=== PATIENT | female | born 1995 | race Caucasian/White ===

== ENCOUNTER 2016-10-30 12:17 | Emergency (ER) | payer BC ==
[2016-10-30 12:35] VITALS: BP 113/77
--- NOTE | 2016-10-30 12:58 | UC ---
Lower Extremity/Ankle HPI - HPI Summary HPI Summary: Noticed small red "pimple" on R inner upper thigh yesterday, tried to pop it at home. Woke up today with large round painful red area of skin. Worried about a spider bite, reports her mom gets "hives from spider bites." - History of Current Complaint Chief Complaint: Aydee Stated Complaint: BUG BITE Time Seen by Provider: 10/30/16 12:42 Hx Obtained From: Patient Hx Last Menstrual Period: 10/25/16 ?: No Onset/Duration: Gradual Onset, Lasting Days Severity Initially: Mild Severity Currently: Moderate Aggravating Factor(s): Other - touch Alleviating Factor(s): Rest Able to Bear Weight: Yes - Allergies/Home Medications Allergies/Adverse Reactions: Allergies Allergy/AdvReac Type Severity Reaction Status Date / Time No Known Allergies Allergy Verified 10/30/16 12:35 Home Medications: Home Medications Hydrocortisone (Topical) [Hydrocortisone] 1 applic TOPICAL ONCE PRN 10/30/16 [ History Confirmed 10/30/16] Metformin HCl 2 tab PO DAILY 10/30/16 [History Confirmed 10/30/16] PMH/Surg Hx/FS Hx/Imm Hx Other Endocrine History: PCOS - Surgical History Surgical History: Yes Surgery Procedure, Year, and Place: [place] Teeth extractioon - Family History Known Family History: Positive: None - Social History Occupation: Employed Part-time Lives: With Family Alcohol Use: None Substance Use Type: None Smoking Status (MU): Never Smoked Tobacco Household Exposure Type: Cigarettes - Immunization History Vaccination Up to Date: Yes Review of Systems Constitutional: Negative Skin: Rash - R thigh Eyes: Negative ENT: Negative Respiratory: Negative Cardiovascular: Negative Gastrointestinal: Negative Genitourinary: Negative Motor: Negative Neurovascular: Negative Musculoskeletal: Negative Neurological: Negative Psychological: Negative All Other Systems Reviewed And Are Negative: Yes Physical Exam Triage Information Reviewed: Yes Appearance: Well-Appearing, Obese Vital Signs: Initial Vital Signs Temp 98.4 F 10/30/16 12:31 Pulse 91 10/30/16 12:31 Resp 18 10/30/16 12:31 BP 113/77 10/30/16 12:31 Pulse Ox 98 10/30/16 12:31 Vital Signs Reviewed: Yes Eye Exam: Normal Eyes: Positive: Conjunctiva Clear ENT Exam: Normal ENT: Positive: Normal ENT inspection, Hearing grossly normal, Pharynx normal, TMs normal Dental Exam: Normal Neck exam: Normal Neck: Positive: Supple, Nontender, No Lymphadenopathy Respiratory Exam: Normal Respiratory: Positive: Chest non-tender, Lungs clear, Normal breath sounds, No respiratory distress, No accessory muscle use Cardiovascular Exam: Normal Cardiovascular: Positive: RRR, No Murmur Musculoskeletal Exam: Normal Neurological Exam: Normal Neurological: Positive: Alert Psychological Exam: Normal Skin Exam: Other - 14cm x 10cm red, hot, tender skin with pustule in the center in R upper inner thigh Lower Extremity Course/Dx - Differential Dx/Diagnosis Provider Diagnoses: R thigh cellulitis Discharge - Discharge Plan Condition: Stable Disposition: HOME Prescriptions: Sulfamethox/Trimethoprim DS* [Bactrim DS 800/160 TAB*] 1 tab PO BID #11 tab Patient Education Materials: Cellulitis (ED) Referrals: Sarahi Abdullahi NP [Primary Care Provider] - Additional Instructions: Warmth and rest can help the area. You should see clear improvement within 36 hours of starting the antibiotic. If not, please call and get me a message that you are not improving and I can add to or change your antibiotics. I will be working every day through Thursday (though some days I will be in [place], you should be able to get me a message no problem).
== END 2016-10-30 13:05 | disposition home or self-care (01) ==
LOC: UCEAST 12:17
DX: L03.115 Cellulitis of right lower limb (principal); E66.9 Obesity, unspecified; Z77.22 Contact with and (suspected) exposure to environmental tobacco smoke (acute) (chronic)
CPT/HCPCS: 99212; G0463

== ENCOUNTER 2017-04-27 13:35 | Emergency (ER) | payer BC, MEDICAID, OTHER ==
[2017-04-27 15:15] VITALS: BP 131/71
--- NOTE | 2017-04-27 15:55 | RAD ---
CLINICAL HISTORY: Right flank pain and urinary tract infection symptoms COMPARISON: None TECHNIQUE: Noncontrast CT examination of the abdomen and pelvis from the lung bases through the initial tuberosities. FINDINGS: VISUALIZED LUNG BASES: The visualized lung bases are grossly clear. There is no pleural effusion. ABDOMEN AND PELVIS: Evaluation of the solid organs and vasculature is limited without intravenous contrast. The liver, spleen, pancreas and adrenal glands are grossly normal in appearance. The gallbladder is normal. In the right kidney there is a nonobstructing lower pole calcification measuring 6 mm in greatest dimension (coronal image 85). At the lower pole of the left kidney there is a punctate calcification. There is no significant hydronephrosis bilaterally. No calculi are identified in either ureter or the urinary bladder. Evaluation of the urinary bladder is limited as it is mostly decompressed which gives the appearance of circumferential wall thickening. Evaluation of the gastrointestinal tract is limited without oral contrast. The small and large bowel are not distended. A normal appendix is identified in the right lower quadrant measuring 6 mm in diameter (axial image 159 and coronal image 77). Gas and stool seen throughout the length of the normal-appearing colon. There is no gross retroperitoneal or mesenteric lymphadenopathy. The pelvic viscera is normal in appearance. The abdominal aorta and iliac arteries are normal in course and diameter. There are bilateral L5 pars interarticularis defects without subsequent spondylolisthesis. IMPRESSION: 1. Bilateral nonobstructing renal calculi. 2. 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
--- NOTE | 2017-04-27 19:25 | UC ---
Caryn Bae Nilda, scribed for Dimitrios Babin MD on 04/27/17 at 1527 . Complaint Female HPI - HPI Summary HPI Summary: This patient is a 21 year old F [place] [facility] [place] a chief complaint of constant dysuria for the past 2 days. Two weeks ago pt states she had pain where her kidneys were and visited her clinic at home. UA revealed trace RBC and WBC. Pt was on Bactrim for three days with slight relief but symptoms continue. The patient rates the pain 8/10 in severity. Symptoms aggravated by urination. Patient reports abd pain (cramping), hematuria, and right lower back pain. Patient denies vaginal discharge, abnormal bowels, fever, chills, ear pain , and throat pain. LNMP 03/31/17. - History Of Current Complaint Chief Complaint: UCGU Stated Complaint: URINARY ISSUE Time Seen by Provider: 04/27/17 15:18 Hx Obtained From: Patient Hx Last Menstrual Period: 03/31/17 Onset/Duration: Sudden Onset, Lasting Days - 2 days, Still Present Timing: Constant Severity Currently: Severe Pain Intensity: 8 Pain Scale Used: 0-10 Numeric Character: Cramping Aggravating Factor(s): Urination Alleviating Factor(s): Meds - bactrim Associated Signs And Symptoms: Positive: Back Pain. Negative: Vaginal Bleeding/ Discharge, Vaginal Discharge - Allergies/Home Medications Allergies/Adverse Reactions: Allergies Allergy/AdvReac Type Severity Reaction Status Date / Time No Known Allergies Allergy Verified 04/27/17 15:12 PMH/Surg Hx/FS Hx/Imm Hx Previously Healthy: Yes - Surgical History Surgical History: Yes Surgery Procedure, Year, and Place: [place] Teeth extractioon - Family History Known Family History: Negative: Renal Disease - Social History Occupation: Employed Full-time Alcohol Use: None Substance Use Type: None Smoking Status (MU): Never Smoked Tobacco Household Exposure Type: Cigarettes - Immunization History Vaccination Up to Date: Yes Review of Systems Constitutional: Other - negative fever or chills ENT: Other - negative ear pain, throat pain Gastrointestinal: Abdominal Pain, Other - negative abnormal bowels Genitourinary: Dysuria, Hematuria, Other - negative vaginal discharge Musculoskeletal: Other: - right lower back pain All Other Systems Reviewed And Are Negative: Yes Physical Exam Triage Information Reviewed: Yes Vital Signs: Initial Vital Signs Temp 97.8 F 04/27/17 15:13 Pulse 82 04/27/17 15:13 Resp 19 04/27/17 15:13 BP 131/71 04/27/17 15:13 Pulse Ox 100 04/27/17 15:13 Vital Signs Reviewed: Yes - Additional Comments General: well-appearing, no pain distress Skin: warm, color reflects adequate perfusion, dry Head: normal Eyes: EOMI, PATTY ENT: normal Neck: supple, nontender Respiratory: CTA, breath sounds present Cardiovascular: RRR Abdomen: soft, tender suprapubic area Bowel: present Musculoskeletal: normal, strength/ROM intact Neurological: normal, sensory/motor intact, A&O x3 Psychological: affect/mood appropriate Diagnostics - Radiology CT Abd/Pel Radiology Interpretation Completed By: Radiologist - CT Abd/Pel, per radiologist , reveals: 1. Bilateral nonobstructing renal calculi. 2. 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 Dr. Babin has reviewed this radiology report. Re-Evaluation - Re-Evaluation First Eval Re-Evaluation Time: 16:18 Comment: Reviewed labs and imaging with pt. Reviewed plan to send serum test to lab. 3 pregnany tests done here: 1 positive, 1 borderline on machine. 1 manual test was negatve. Complaint Female Dx - Course Course Of Treatment: CT Abd/Pel, per radiologist, reveals: 1. Bilateral nonobstructing renal calculi. 2. 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 Dr. Babin has reviewed this radiology report. BP noted and advised to follow up with PCP. Allergies and medications reviewed. IN THE CLINIC, THERE WERE 4 TESTS OBTAINED. THE FIRST TWO WERE RUN ON THE MACHINE INITIAL ONE WAS POSITIVE, THE SECOND BORDERLINE. THE THIRD WAS DONE MANUALLY AND WAS NEGATIVE. THE FORTH IS A BLOOD DRAW BEING SENT TO THE LAB. THIS WAS ALL DISCUSSED WITH THE PATIENT. THE SERUM TEST WAS NEGATIVE. I CALLED [facility] AND LEFT A MESSAGE ON HER VOICE MAIL TELLING HER OF THE NEGATIVE RESULTS. - Differential Dx/Diagnosis Provider Diagnoses: UTI. Elevated blood pressure without history of hypertension. Discharge - Discharge Plan Condition: Stable Disposition: HOME Prescriptions: Nitrofurantoin Monohyd Macro [Macrobid] 100 mg PO BID #28 cap Patient Education Materials: Urinary Tract Infection in Women (ED) Referrals: [facility] [place] [facility] [[place]] No Primary Care Phys,NOPCP [Primary Care Provider] - Additional Instructions: FOLLOW UP WITH YOUR DOCTOR. WE WILL CALL YOU WITH YOUR SERUM TEST RESULTS TONIGHT. GET RECHECKED FOR ANY WORSENING OF YOUR CONDITION OR QUESTIONS OR CONCERNS. Your blood pressure was elevated during todays visit; please follow up with your primary care provider within a week for further evaluation. The documentation as recorded by the Caryn ewing Nilda accurately reflects the service I personally performed and the decisions made by me, Dimitrios Babin MD.
--- NOTE | 2017-04-28 18:50 | UC ---
Progress - Progress Note Progress Note: Pt with + E coli on Macrobid await sensitivities No change [facility] 04/28/2017 Re-Evaluation - Re-Evaluation First Eval Re-Evaluation Time: 16:18 Comment: Reviewed labs and imaging with pt. Reviewed plan to send serum test to lab. 3 pregnany tests done here: 1 positive, 1 borderline on machine. 1 manual test was negatve.
--- NOTE | 2017-04-29 11:33 | UC ---
Progress - Progress Note Progress Note: Pt with + E coli on Macrobid await sensitivities No change [facility] 04/28/2017 04/29/17 11:30 + sensitive to macrobid no changes [facility] Re-Evaluation - Re-Evaluation First Eval Re-Evaluation Time: 16:18 Comment: Reviewed labs and imaging with pt. Reviewed plan to send serum test to lab. 3 pregnany tests done here: 1 positive, 1 borderline on machine. 1 manual test was negatve.
== END 2017-04-27 16:43 | disposition home or self-care (01) ==
LOC: UCEAST 13:35
DX: N39.0 Urinary tract infection, site not specified (principal); R03.0 Elevated blood-pressure reading, without diagnosis of hypertension; Z32.02 Encounter for pregnancy test, result negative; B96.20 Unspecified Escherichia coli [E. coli] as the cause of diseases classified elsewhere; Z77.22 Contact with and (suspected) exposure to environmental tobacco smoke (acute) (chronic)
CPT/HCPCS: 36415; 74176; 81003; 81025; 84702; 87077; 87086; 87186; 99212; G0463

== ENCOUNTER 2018-11-21 17:47 | Emergency (ER) | payer OTHER ==
[2018-11-21 18:41] VITALS: BP 121/80
--- NOTE | 2018-11-21 19:10 | UC ---
Complaint Female HPI - HPI Summary HPI Summary: 2 DAYS OF FOUL-SMELLING VAGINAL DISCHARGE. DENIES ANY ITCHING OR IRRITATION. NO URINARY SYMPTOMS. HAD UNPROTECTED SEX ABOUT 2 MONTHS AGO. HAD A ONE NIGHT STAND A COUPLE OF WEEKS AGO BUT REPORTS SHE USED BARRIER PROTECTION DURING THAT ENCOUNTER. IS CONCERNED ABOUT VAGINITIS AND WOULD ALSO LIKE STD TESTING. IS UP -TO-DATE ON HER VACCINATIONS INCLUDING HEPATITIS B SERIES. - History Of Current Complaint Chief Complaint: UCGU Stated Complaint: PERSONAL ISSUE Time Seen by Provider: 11/21/18 18:37 Hx Obtained From: Patient, Family/Field Service Poultry Technician - MOM Hx Last Menstrual Period: 10/27/2018 Onset/Duration: Gradual Onset, Lasting Days, Still Present Timing: Constant Severity Initially: Moderate Severity Currently: Moderate Pain Intensity: 0 Pain Scale Used: 0-10 Numeric Character: Burning Aggravating Factor(s): Nothing Alleviating Factor(s): Nothing Associated Signs And Symptoms: Positive: Vaginal Discharge. Negative: Fever, Back Pain - Allergies/Home Medications Allergies/Adverse Reactions: Allergies Allergy/AdvReac Type Severity Reaction Status Date / Time No Known Allergies Allergy Verified 11/21/18 18:36 Home Medications: Home Medications NK [No Home Medications Reported] 11/21/18 [History Confirmed 11/21/18] PMH/Surg Hx/FS Hx/Imm Hx Previously Healthy: Yes - Surgical History Surgical History: Yes Surgery Procedure, Year, and Place: [place] Teeth extractioon - Family History Known Family History: Positive: None Negative: Renal Disease - Social History Alcohol Use: None Substance Use Type: None Smoking Status (MU): Never Smoked Tobacco Household Exposure Type: Cigarettes - Immunization History Vaccination Up to Date: Yes Review of Systems All Other Systems Reviewed And Are Negative: Yes Constitutional: Positive: Negative Skin: Positive: Negative Respiratory: Positive: Negative Cardiovascular: Positive: Negative Gastrointestinal: Positive: Negative Genitourinary: Positive: Vaginal/Penile Discharge. Negative: Dysuria, Frequency , Urgency Physical Exam Triage Information Reviewed: Yes Appearance: Well-Appearing, No Pain Distress, Well-Nourished Vital Signs: Initial Vital Signs Temp 97.7 F 11/21/18 18:38 Pulse 82 11/21/18 18:38 Resp 18 11/21/18 18:38 BP 121/80 11/21/18 18:38 Pulse Ox 95 11/21/18 18:38 Laboratory Tests 11/21/18 18:41 POC Ur Test Negative Vital Signs Reviewed: Yes Eyes: Positive: Conjunctiva Clear ENT: Positive: Hearing grossly normal Neck: Positive: Supple Respiratory: Positive: No respiratory distress, No accessory muscle use Cardiovascular: Positive: Pulses Normal Abdomen Description: Positive: Nontender, Soft Pelvic Exam: Positive: External Exam Normal, Bimanual Exam Normal, No Cerv. Motion Tender, Discharge - THIN MALODOROUS AGUILAR/WHITE DISCHARGE IN VAGINAL VAULT. Negative: Cervicitis Musculoskeletal: Positive: No Edema Neurological: Positive: Alert Psychological: Positive: Age Appropriate Behavior Skin: Negative: Rashes Complaint Female Dx - Course Course Of Treatment: FINDINGS ON PELVIC EXAM INDICATIVE OF BACTERIAL VAGINOSIS. WILL COVER EMPIRICALLY WITH METRONIDAZOLE TWICE DAILY FOR 7 DAYS. ADVISED NO ALCOHOL WHILE ON THIS MEDICATION. VAGINAL SWABS SENT FOR YEAST, BV, TRICHOMONAS, GONORRHEA AND CHLAMYDIA. BLOOD DRAWN FOR HIV, SYPHILIS AND HEPATITIS C. COUNSELED ON SAFER SEX PRACTICES. REFERRED TO PRIMARY CARE AND BUTTER WRAPPER. - Differential Dx/Diagnosis Provider Diagnosis: Vaginitis, Screen for STD (sexually transmitted disease) Discharge - Sign-Out/Discharge Documenting (check all that apply): Patient Departure All imaging exams completed and their final reports reviewed: No Studies - Discharge Plan Condition: Stable Disposition: HOME Prescriptions: metroNIDAZOLE [Flagyl 500 MG TAB] 500 mg PO BID #13 tab Patient Education Materials: Vaginitis (ED) Referrals: [facility] [Outside] - If Needed Rody Peoples MD [Medical Doctor] - Additional Instructions: YOU LIKELY HAVE BACTERIAL VAGINOSIS. WILL COVER FOR THIS WITH METRONIDAZOLE TWICE DAILY FOR 7 DAYS. BE AWARE THAT THIS MEDICINE MAY MAKE YOU SLIGHTLY NAUSEATED. NO ALCOHOL WHATSOEVER WHILE ON THIS MEDICATION. VAGINAL SWAB SENT TO TEST FOR VARIOUS FORMS OF VAGINITIS WELL GONORRHEA AND CHLAMYDIA. BLOOD TEST FOR HIV, SYPHILIS AND HEPATITIS C DRAWN TODAY. WE WILL CALL YOU WITH ANY ABNORMAL RESULTS. I RECOMMEND YOU ESTABLISH WITH A PCP OR FISH HATCHERY INSPECTOR FOR YOUR ROUTINE PREVENTATIVE CARE. - Billing Disposition and Condition Condition: STABLE Disposition: Home
[2018-11-21] MEDS ORDERED: metroNIDAZOLE TAB* 250 MG PO ONE (19:28)
[2018-11-22 13:52] LABS: HIV 4th Generation Negative (Negative)
[2018-11-22 14:01] LABS: Hepatitis C Antibody Negative (Negative)
[2018-11-23 19:55] LABS: Neisseria gonorrhoeae (GC) RNA Negative (Negative)
[2018-11-23 20:10] LABS: Trichomonas vaginalis Result Negative (Negative)
--- NOTE | 2018-11-24 16:43 | UC ---
- Progress Note Progress Note: syphillis neg no change ljj 11/24/18 Course/Dx - Diagnoses Provider Diagnoses: Vaginitis, Screen for STD (sexually transmitted disease) Discharge - Sign-Out/Discharge Documenting (check all that apply): Patient Departure All imaging exams completed and their final reports reviewed: No Studies - Discharge Plan Condition: Stable Disposition: HOME Prescriptions: metroNIDAZOLE [Flagyl 500 MG TAB] 500 mg PO BID #13 tab Patient Education Materials: Vaginitis (ED) Referrals: [facility] [Outside] - If Needed Rody Peoples MD [Medical Doctor] - Additional Instructions: YOU LIKELY HAVE BACTERIAL VAGINOSIS. WILL COVER FOR THIS WITH METRONIDAZOLE TWICE DAILY FOR 7 DAYS. BE AWARE THAT THIS MEDICINE MAY MAKE YOU SLIGHTLY NAUSEATED. NO ALCOHOL WHATSOEVER WHILE ON THIS MEDICATION. VAGINAL SWAB SENT TO TEST FOR VARIOUS FORMS OF VAGINITIS WELL GONORRHEA AND CHLAMYDIA. BLOOD TEST FOR HIV, SYPHILIS AND HEPATITIS C DRAWN TODAY. WE WILL CALL YOU WITH ANY ABNORMAL RESULTS. I RECOMMEND YOU ESTABLISH WITH A PCP OR PUBLIC WELFARE WORKER FOR YOUR ROUTINE PREVENTATIVE CARE. - Billing Disposition and Condition Condition: STABLE Disposition: Home
== END 2018-11-21 19:35 | disposition home or self-care (01) ==
LOC: UCEAST 17:47
DX: N76.0 Acute vaginitis (principal); Z20.2 Contact with and (suspected) exposure to infections with a predominantly sexual mode of transmission
CPT/HCPCS: 36415; 84702; 86780; 86803; 87389; 87480; 87491; 87510; 87591; 87661; 99212; A9270-GY; G0463

== ENCOUNTER 2019-05-01 16:34 | Emergency (ER) | payer OTHER ==
--- OUTSIDE RECORDS SUMMARY | 2019-05-01 16:51 | XMS REPORT | Continuity of Care Document ---
:1995 External Reference #:[id number] Author Name Dakotah Lynn MD Address [address] [place] [address] Problems Description No Information Available Social History Type Date Description Comments Sex Unknown Cigarette Use Does Not Smoke Cigarettes ETOH Use Currently consumes alcohol occasionally Recreational Drug Use Denies Drug Use Tobacco Use Start: Unknown Patient has never smoked Smoking Status Reviewed: 04/28/19 Patient has never smoked Exercise Type/Frequency Does not exercise Allergies, Adverse Reactions, Alerts Active Allergies Reaction Severity Comments Date Latex sensitive 01/25/2019 Metronidazole Diarrhea, vomiting 02/01/2019 Inactive Allergies NKDA 01/25/2019 Medications Active Medications SIG Qnty Indications Ordering Date Provider Fluconazole 1 tablet then 2tabs Pepper Lee, 03/24/2019 150mg second tablet 72 CNM Tablets hours later as needed for continuing symptoms Sprintec 28 1 by mouth every 84tabs Larissa Louise, 02/03/2019 day CNM 0.25-35mg-mcg Tablets Metoprolol Succinate 1 by mouth every Unknown ER day 25mg Tablets ER 24HR Propranolol HCL 1 by mouth three Unknown 10mg times a day Tablets History Medications Clindamycin Phosphate one applicator per 80gm Larissa Louise, 02/01/2019 - 2% vagina every night CNM 03/24/2019 Cream at bedtime x 7 days Metronidazole 1 tab by mouth 14tabs Larissa Gil, 01/27/2019 - 500mg Tablets twice a day CNM 02/01/2019 Cyclafem 1/35 1 tab by mouth 84tabs Larissa Gil, 01/25/2019 - 1-35mg-mcg every day CNM 02/03/2019 Tablets Medications Administered in Office Medication SIG Qnty Indications Ordering Provider Date PT SCRN Tbco Id as Non User Dakotah Lynn MD 04/28/2019 Injection PT SCRN Tbco Id as Non User Pepper Lee CNM 03/24/2019 Injection Immunizations Description No Information Available Vital Signs Date Vital Result Comment 04/28/2019 1:23pm BP Systolic 122 mmHg BP Diastolic 78 mmHg Height 66 inches 5'6" Weight 232.00 lb BMI (Body Mass Index) 37.4 kg/m2 Last Menstrual Period 1905661 0 Parity 0 03/24/2019 3:39pm BP Systolic 118 mmHg BP Diastolic 76 mmHg Height 66 inches 5'6" Weight 232.00 lb BMI (Body Mass Index) 37.4 kg/m2 Last Menstrual Period [id number] 0 Parity 0 Results Test Acquired Date Facility Test Result H/L Range Note Laboratory test 03/24/2019 [facility] Gardnerella/Ye SEE RESULT [address] [place] [address] ast: Vaginal BELOW [phone] Dna Laboratory test 01/25/2019 [facility] Gard[place]/Ye SEE RESULT [address] [place] [address] ast: Vaginal BELOW [phone] Dna Laboratory test 01/25/2019 [facility] Cytology SEE RESULT 3 [place] [address] BELOW [phone] 1 SEE RESULT BELOW Name: NORTH MASSEY : [address]: Pepper Lee CNM Acct: [id number] Unit: [id number] AGE: 23 Location: [facility] Re03/24/19 SEX: F Status: REG REF SPEC: [id number] BERTO: 03/24/19-[address] [facility] [address]: Pepper Lee [facility] REQ: [id number] RECD: 03/25/19 STATUS:COMP _ SOURCE: VAGINAL [facility]: ORDERED: Brennan,Yeast DNA COMMENTS: [id number] Would you like to order Trichomonas Vaginalis testing? No Procedure Result Reported Site Gardnerella/Yeast: Vaginal DNA Final 03/26/19- 1623 ML Organism 1 POSITIVE GARDNERELLA Organism 2 Negative Mariana The presence of G. vaginalis, although suggestive, is not diagnostic for bacterial vaginosis. Results should be interpreted in conjuction with other clinical and laboratory data available. Women with vaginal discharge should be evaluated for risk factors of cervicitis and pelvic inflammatory disease, toxic shock syndrome (S.aureus), and if present, evaluated for organisms not included in this assay such as N. gonorrhoeae, C. trachomatis, Mobiluncus, Mycoplasma and/or Prevotella. Mixed infections may occur. The performance of this test on patient specimens collected during or immediately after antimicrobial therapy is unknown. The presence or absence of Mariana species, or G. vaginalis cannot be used as a test for therapeutic success or failure. * - Main Lab . END OF REPORT DEPARTMENT OF PATHOLOGY, [address] [place] [address] Ilia Mijares M.D. Director [facility] # [id number] 2 SEE RESULT BELOW Name: NORTH MASSEY : [address]: Larissa Gil CNM Acct: [id number] Unit: [id number] AGE: 23 Location: [facility] Re01/25/19 SEX: F Status: REG REF SPEC: [id number] BERTO: 01/25/19-[address] [facility] [address]: Larissa Gil CNM REQ: [id number] RECD: 01/26/191249 STATUS: COMP _ SOURCE: VAGINAL SPDESC: ORDERED: Brennan,Yeast DNA, Trich DNA COMMENTS: [id number] Would you like to order Trichomonas Vaginalis testing? Yes Procedure Result Reported Site Gardnerella/Yeast: Vaginal DNA Final 01/27/191112 ML Organism 1 POSITIVE GARDNERELLA Organism 2 Negative Mariana The presence of G. vaginalis, although suggestive, is not diagnostic for bacterial vaginosis. Results should be interpreted in conjuction with other clinical and laboratory data available. Women with vaginal discharge should be evaluated for risk factors of cervicitis and pelvic inflammatory disease, toxic shock syndrome (S.aureus), and if present, evaluated for organisms not included in this assay such as N. gonorrhoeae, C. trachomatis, Mobiluncus, Mycoplasma and/or Prevotella. Mixed infections may occur. The performance of this test on patient specimens collected during or immediately after antimicrobial therapy is unknown. The presence or absence of Mariana species, or G. vaginalis cannot be used as a test for therapeutic success or failure. Trichomonas: Vaginal DNA Probe Final 01/27/191112 ML Organism 1 Negative Trichomonas CONTINUED ON NEXT PAGE DEPARTMENT OF PATHOLOGY, [address] [place] [address] Ilia Mijares M.D. Director [facility] # [id number] Patient: NORTH MASSEY [id number] (Continued) Specimen: [id number] Collected: 01/25/19 Received: 01/26/19 (Continued) Procedure Result Reported Site Trichomonas: Vaginal DNA Probe Final (continued) 01/27/19- 111 The presence or absence of T. vaginalis cannot be used as a test for therapeutic success or failure. * ML - Main Lab . END OF REPORT DEPARTMENT OF PATHOLOGY, [address] [place] [address] Ilia Mijares M.D. Director [facility] # [id number] 3 SEE RESULT BELOW Name: NORTH MASSEY : [address]: Larissa Gil CNM Acct: [id number] Unit: [id number] AGE: 23 Location: [facility] Re01/25/19 SEX: F Status: REG REF SPEC: [id number] BERTO: 01/25/19-[address]: Larissa Gil CNM REQ: [id number] RECD: 01/26/19-1301 STATUS: SOUT _ ORDERED: TP IMAGE ANALYS COMMENTS: [id number] FINAL DIAGNOSIS Negative for Intraepithelial lesion or Malignancy Shift in markel suggestive of bacterial vaginosis SPECIMEN(S) RECEIVED A. Ectocervical/Endocervical CYTOLOGY ADEQUACY Specimen Adequacy: Satisfactory of evaluation Transformation zone component not identified CYTOLOGY PATIENT INFORMATION Patient Information: HPV: Thin Layer Pap Test w/reflex to high risk HPV RNA testing when ASCUS Actual Specimen Date: 01/25/19 Last Menstrual Date: 01/08/19 Spec Date if unknown: unknowN ?: N Post Menopausal?: N Hysterectomy?: N Previous Abnormal Pap Smears?:N Signed by and Reported on: CATY Morton(ASCP) 2058 This Pap test was evaluated with the assistance of the [employer] Test Imaging System. Due to cytologic findings at the filter tip catcher microscope, comprehensive manual rescreening by a Epitaxial Reactor Operator may be required. The Pap Smear is a screening test designed to aid in the detection of premalignant and malignant conditions of the uterine cervix. It is not a diagnostic procedure and should not be used as the sole means of detecting cervical cancer. Both false- positive and false- negative reports do occur. Depending on your risk status, a Pap smear should be obtained and evaluated every 1-3 years. END OF REPORT DEPARTMENT OF PATHOLOGY, [address] [place] [address] Ilia Mijares M.D. Director [facility] # [id number] Procedures Description No Information Available Medical Devices Description No Information Available Encounters Type Date Location Provider Dx Diagnosis Office Visit 04/28/2019 [facility] Dakotah Lynn MD R10.31 Right lower quadrant 1:30p pain Z87.442 Personal history of urinary calculi Office Visit 03/24/2019 3:45p [facility] Pepper Lee N76.0 Acute vaginitis [facility] Office Visit 01/25/2019 3:00p [facility] Larissa Gil CNM Z01.419 Encntr for retention representative exam (general) (routine) w/o abn findings Assessments Date Code Description Provider 04/28/2019 R10.31 Right lower quadrant pain Dakotah Lynn MD 04/28/2019 Z87.442 Personal history of urinary calculi Dakotah Lynn MD 03/24/2019 N76.0 Acute vaginitis Pepper Lee CNM 01/25/2019 Z01.419 Encounter for gynecological examination Larissa Gil CNM (general) (routine) without abnormal findings Plan of Treatment No Information Available Functional Status Description No Information Available Mental Status Description No Information Available Referrals Description No Information Available
--- OUTSIDE RECORDS SUMMARY | 2019-05-01 16:51 | XMS REPORT | Continuity of Care Document ---
:1995 External Reference #:[id number] Author Name Heaven Mcleod PA-C (transmitted by agent of provider Alec Rivera) Address [address] [address] Care Team Providers Name Role Phone Annie Burrell MD Care Team Information Guidance Director Unavailable Problems Description No Information Available Social History Type Date Description Comments Sex Unknown Tobacco Use Start: Unknown Never Smoked Cigarettes Tobacco Use Start: Unknown Never Smoked Cigars Tobacco Use Start: Unknown Never Smoked A Pipe Smokeless Tobacco Never Used Smokeless Tobacco ETOH Use Currently rarely consumes alcohol Tobacco Use Start: Unknown Patient has never smoked Smoking Status Reviewed: 04/22/19 Patient has never smoked Allergies, Adverse Reactions, Alerts Description No Known Drug Allergies Medications Active Medications SIG Qnty Indications Ordering Provider Date Alcona-Linyah Take One Tablet Unknown 0.25-35mg-mcg By Mouth Every Tablets Day Metoprolol Succinate Take One Tablet Unknown ER By Mouth Every 25mg Tablets ER 24HR Day Propranolol HCL Take One Tablet Unknown 10mg By Mouth AT Night Tablets as Needed Immunizations Description No Information Available Vital Signs Date Vital Result Comment 04/25/2019 9:07am BP Systolic 120 mmHg BP Diastolic 71 mmHg Heart Rate 78 /min Respiratory Rate 16 /min Weight 230.00 lb Weight 104.328 kg Height 67.5 inches 5'7.50" Height in cm's 171.4 cm BMI (Body Mass Index) 35.5 kg/m2 02/15/2019 2:40pm Weight 232.00 lb Weight 105.235 kg Height 67.5 inches 5'7.50" Height in cm's 171.4 cm BMI (Body Mass Index) 35.8 kg/m2 Results Description No Information Available Procedures Description No Information Available Medical Devices Description No Information Available Encounters Type Date Location Provider Dx Diagnosis Office Visit 02/15/2019 [place] Alec Sky J35.01 Chronic tonsillitis 2:45p 05/11/07 MD Nicole J35.1 Hypertrophy of tonsils Assessments Date Code Description Provider 04/25/2019 J35.01 Chronic tonsillitis Heaven Mcleod PA-C 04/25/2019 J35.1 Hypertrophy of tonsils Heaven Mcleod PA-C 02/15/2019 J35.01 Chronic tonsillitis Alec Rivera MD 02/15/2019 J35.1 Hypertrophy of tonsils Alec Rivera MD Plan of Treatment Future Appointment(s):06/20/2019 9:15 am - Heaven Mcleod PA-C at [place] 9:15 am - Alec Rivera MD at [facility] [place] R106/26/2018 - ZULMA RoCJ35.01 Chronic qonpkfmsmdoQ97.1 Hypertrophy of tonsilsComments:2018 - POSTOP CARE Loki&Katie has been scheduled for tonsillectomy with Dr. Rivera who has already We reviewed the risks benefits and alternatives of tonsillectomy. The postoperative course was reviewed in great detail. We discussed higher levels of pain are more likely in the first couple of days and then again after a week when the scabs begin to come off. They can use Tylenol and anti-inflammatories interchanging every 2 hours to cover the pain as needed. They understand to push fluids to help his course go better. They will have popsicles on hand both for fluid intake and in case of a postoperative bleed. They are encouraged to call the office with any questions or concerns in the pre or post operative period. Functional Status Description No Information Available Mental Status Description No Information Available Referrals Description No Information Available
--- OUTSIDE RECORDS SUMMARY | 2019-05-01 16:51 | XMS REPORT | Continuity of Care Document ---
:1995 External Reference #:[id number] Author Name Pepper Lee CNM Address [address] [place] [address] Problems Description No Information Available Social History Type Date Description Comments Sex Unknown Cigarette Use Does Not Smoke Cigarettes ETOH Use Currently consumes alcohol occasionally Recreational Drug Use Denies Drug Use Tobacco Use Start: Unknown Patient has never smoked Smoking Status Reviewed: 01/25/19 Patient has never smoked Exercise Type/Frequency Does [...] 28 1 by mouth every 84tabs Larissa Gil, 02/03/2019 day CNM 0.25-35mg-mcg Tablets History Medications Clindamycin Phosphate one applicator per 80gm Larissa Gil, 02/01/2019 - 2% vagina every night CNM 03/24/2019 Cream at bedtime x 7 days Metronidazole 1 tab by mouth 14tabs Larissa Louise, 01/27/2019 - 500mg Tablets twice a day CNM 02/01/2019 Cyclafem 1/35 1 tab by mouth 84tabs Larissa Storstephan, 01/25/2019 - 1-35mg-mcg every day CNM 02/03/2019 Tablets Immunizations Description No Information Available Vital Signs Date Vital Result Comment 03/24/2019 3:39pm BP Systolic 118 mmHg BP Diastolic 76 mmHg Height 66 inches 5'6" Weight 232.00 lb BMI (Body Mass Index) 37.4 kg/m2 Last Menstrual Period [id number] 0 Parity 0 01/25/2019 2:26pm BP Systolic 116 mmHg BP Diastolic 68 mmHg Height 66 inches 5'6" Weight 232.00 lb BMI (Body Mass Index) 37.4 kg/m2 Last Menstrual Period [id number] Results Test Acquired Date Facility Test Result H/L Range Note Laboratory test 03/24/2019 [facility] Gardnerella/Ye <pending> [place] [address] ast: Vaginal [phone] Dna Laboratory test 01/25/2019 [facility] Gardnerella/Ye SEE RESULT [address] [place] [address] ast: Vaginal BELOW [phone] Dna Laboratory test 01/25/2019 [facility] Cytology SEE RESULT 2 [place] [address] BELOW [phone] 1 SEE RESULT BELOW Name: NORTH MASSEY : [address]: Larissa Gil CNM Acct: [id number] Unit: [id number] AGE: 23 Location: [facility] Re01/25/19 SEX: F Status: REG REF SPEC: [id number] BERTO: 01/25/19-[address]: Larissa Gil CNM REQ: [id number] RECD: 01/26/19-1249 STATUS: COMP _ SOURCE: VAGINAL SPDESC: ORDERED: Brennan,Yeast DNA, Trich DNA COMMENTS: [id number] Would you like to order Trichomonas Vaginalis testing? Yes Procedure Result Reported Site Gardnerella/Yeast: Vaginal DNA Final 01/27/19- 1112 ML Organism 1 POSITIVE GARDNERELLA Organism 2 [...] or failure. Trichomonas: Vaginal DNA Probe Final 01/27/193 ML Organism 1 Negative Trichomonas CONTINUED ON NEXT PAGE DEPARTMENT OF PATHOLOGY, [address] [place] [address] Ilia Mijares M.D. Director [facility] # [id number] Patient: NORTH MASSEY [id number] (Continued) Specimen: [id number] Collected: 01/25/19 Received: 01/26/19 (Continued) Procedure Result Reported Site Trichomonas: Vaginal DNA Probe Final (continued) 01/27/19 111 The presence or absence of T. vaginalis cannot be used as a test for therapeutic success or failure. * ML - Main Lab . END OF REPORT DEPARTMENT OF PATHOLOGY, [address] [place] [address] Ilia Mijares M.D. Director [facility] # [id number] 2 SEE RESULT BELOW Name: NORTH MASSEY : [address]: Larissa Gil CNM Acct: [id number] Unit: [id number] AGE: 23 Location: [facility] Re01/25/19 SEX: F Status: REG REF SPEC: [id number] BERTO: 01/25/19-[address] [facility] [address]: Larissa Gil CNM REQ: [id number] RECD: 01/26/19-1301 STATUS: SOUT _ ORDERED: TP IMAGE ANALYS COMMENTS: [id number] FINAL DIAGNOSIS Negative for Intraepithelial lesion or [...] Signed by and Reported on: CATY Morton(ASCP) 6740 This Pap test was evaluated with the assistance of the [employer] Test Imaging System. Due to cytologic findings at the content management specialist microscope, comprehensive manual rescreening by a Service Coordinator Elderly Facility may be required. The Pap Smear is [...] years. END OF REPORT DEPARTMENT OF PATHOLOGY, [address] [place] [address] Ilia Mijares M.D. Director [facility] # [id number] Procedures Description No Information Available Medical Devices Description No Information Available Encounters Type Date Location Provider Dx Diagnosis Office Visit 01/25/2019 [facility] Larissa Gil CNM Z01.419 Encntr for radiation oncologist exam 3:00p (general) (routine) w/o abn findings Assessments Date Code Description Provider 03/24/2019 N76.0 Acute vaginitis Pepper Lee CNM 01/25/2019 Z01.419 Encounter for gynecological examination Larissa Gil CNM (general) (routine) without abnormal findings Plan of Treatment No Information Available Functional Status Description No Information Available Mental Status Description No Information Available Referrals Description No Information Available
--- OUTSIDE RECORDS SUMMARY | 2019-05-01 16:51 | XMS REPORT | Continuity of Care Document ---
:1996 External Reference #:[id number] Author Name Irene Moore M.D. 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 Social History Type Date Description Comments Sex Unknown ETOH Use Rarely consumes alcohol Tobacco Use Start: Unknown Patient has never smoked Recreational Drug Use Denies Drug Use Smoking Status Reviewed: 03/30/19 Patient has never smoked Exercise Type/Frequency Exercises regularly Allergies, Adverse Reactions, Alerts Description No Known Drug Allergies Medications Active Medications SIG Qnty Indications Ordering Provider Date Metoprolol Succinate 1 by mouth every 30tabs I49.3 Donald Le, 2018 ER day DO FACC 25mg Tablets ER 24HR Clenpiq please take as 480ml Sherrie [place] NP 02/24/2019 10-3.5-12mg-GM directed/ sample -GM/160ML Solution Propranolol HCL take one tablet 30tabs R00.2 Annie Burrell MD 02/15/2019 10mg at night as Tablets needed [place]-Linyah 1 by mouth every Unknown day 0.25-35mg-mcg Tablets Probiotic With 2 cap po daily Unknown Prebiotic And Am Cranberry Immunizations Description No Information Available Vital Signs Date Vital Result Comment 03/30/2019 8:48am Height 67 inches 5'7" Weight 231.00 lb Heart Rate 76 /min BP Systolic Sitting 128 mmHg BP Diastolic Sitting 75 mmHg O2 % BldC Oximetry 97 % BMI (Body Mass Index) 36.2 kg/m2 03/23/2019 11:39am Height 67 inches 5'7" Weight 230.75 lb with out shoes Heart Rate 90 /min reg with ectopy BP Systolic 120 mmHg Rue lg cuff BP Diastolic 90 mmHg Rue lg cuff BP Systolic Sitting 124 mmHg Lue lg cuff BP Diastolic Sitting 90 mmHg Lue lg cuff BP Systolic Standing 102 mmHg Lue lg cuff BP Diastolic Standing 80 mmHg Lue lg cuff Respiratory Rate 18 /min BMI (Body Mass Index) 36.1 kg/m2 Ejection Fraction 55-60% date 02/09/19 ECHO Results Test Acquired Date Facility Test Result H/L Range Note Laboratory test 03/23/2019 [facility] Magnesium 2.2 mg/dL Normal 1.9-2.[address] [place] [address] [phone] CBC Auto Diff 02/08/2019 [facility] White Blood 7.5 Normal 3.5 -10.[address] Count 10^3/[place] [address] [phone] Red Blood Count 4.63 10^6/uL Normal 3.70-4.87 Hemoglobin 13.9 g/dL Normal 12.0-16.0 Hematocrit 42 % Normal 35-47 Mean Corpuscular Volume 90 fL Normal 80-97 Mean Corpuscular Hemoglobin 30 pg Normal 27-31 Mean Corpuscular HGB Conc 33 g/dL Normal 31-36 Red Cell Distribution Width 13 % Normal 10-15 Platelet Count 302 10^3/uL Normal 150-450 Mean Platelet Volume 8.2 fL Normal 7.4-10.4 Abs Neutrophils 3.8 10^3/uL Normal 1.5-7.7 Abs Lymphocytes 3.1 10^3/uL Normal 1.0-4.8 Abs Monocytes 0.4 10^3/uL Normal 0-0.8 Abs Eosinophils 0.1 10^3/uL Normal 0-0.6 Abs Basophils 0.1 10^3/uL Normal 0-0.2 Abs Nucleated RBC 0.0 10^3/uL Granulocyte % 50.6 % Lymphocyte % 41.0 % Monocyte % 5.8 % Eosinophil % 1.9 % Basophil % 0.7 % Nucleated Red Blood Cells % 0.0 Comp Metabolic 02/08/2019 [facility] Sodium 139 mmol/L Normal 135-[address] [place] [address] [phone] Potassium 4.2 mmol/L Normal 3.5-5.0 Chloride 106 mmol/L Normal 101-111 Co2 Carbon Dioxide 27 mmol/L Normal 22-32 Anion Gap 6 mmol/L Normal 2-11 Glucose 82 mg/dL Normal 70-100 Blood Urea Nitrogen 14 mg/dL Normal 6-24 Creatinine 0.84 mg/dL Normal 0.51-0.95 BUN/Creatinine Ratio 16.7 Normal 8-20 Calcium 9.0 mg/dL Normal 8.6-10.3 Total Protein 7.1 g/dL Normal 6.4-8.9 Albumin 3.9 g/dL Normal 3.2-5.2 Globulin 3.2 g/dL Normal 2-4 Albumin/Globulin Ratio 1.2 Normal 1-3 Total Bilirubin 0.20 mg/dL Normal 0.2-1.0 Alkaline Phosphatase 76 U/L Normal 34-104 Alt 13 U/L Normal 7-52 Ast 11 U/L Low 13-39 Egfr Non- 84.8 >60 Egfr 102.6 >60 1 Laboratory 02/08/2019 [facility] TSH (Thyroid 0.75 Normal 0.34 -5.60 test finding [address] Stim Horm) mcIU/[place] [address] [phone] 1 Because ethnic data is not always readily available, this report includes an eGFR for both -Americans and non- Americans. The National Kidney Disease Education Program (NKDEP) does not endorse the use of the MDRD equation for patients that are not between the ages of 18 and 70, are , have extremes of body size, muscle mass, or nutritional status, or are non- or non-. According to the National Kidney Foundation, irrespective of diagnosis, the stage of the disease is based on the level of kidney function: Stage Description GFR(mL/min/1.73 m(2)) 1 Kidney damage with normal or decreased GFR 90 2 Kidney damage with mild decrease in GFR 60-89 3 Moderate decrease in GFR 30-59 4 Severe decrease in GFR 15-29 5 Kidney failure <15 (or dialysis) Procedures Date Code Description Status 03/23/2019 54126 EKG Tracing & Interpretation Completed 02/11/2019 48426 Anoscopy Completed 02/10/2019 55945 Holter Monitor Review (24 hr)dr review & interp only Completed 02/09/2019 53098 ECHO Transthoracic, Real-Time 2D With Doppler And Color Completed Flow 02/09/2019 81863 ECHO Transthoracic, Real-Time 2D With Doppler And Color Completed Flow 02/09/2019 89927 ECG Monitor/Recording W/Visual Superimposition Scanning Completed Medical Devices Description No Information Available Encounters Type Date Location Provider Dx Diagnosis Office Visit 03/23/2019 [facility] Donald Nicole Z01.810 Encounter for 12:00p Of DO ANGY Browning preprocedural cardiovascular examination J35.01 Chronic tonsillitis R00.2 Palpitations R06.81 Apnea, not elsewhere classified I49.3 Ventricular premature depolarization Office Visit 03/22/2019 4:00p [facility] Internal Annie Burrell, Z12.4 [facility] of cervix R00.2 Palpitations J35.01 Chronic tonsillitis Office Visit 02/24/2019 3:00p [facility] Gastroenterology Sherrie 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[place], 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 Z80.0 Family history of malignant neoplasm of digestive organs Office Visit 02/15/2019 4:00p [facility] Internal Annie Burrell, R00.2 Palpitations Medicine - [facility] Office Visit 02/11/2019 3:45p Surgical Ramos Hogan, 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anus [facility] , FACS and rectum Office Visit 02/08/2019 11:20a [facility] Internal Annie Burrell R00.2 [facility] J35.01 Chronic tonsillitis 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anus and rectum Assessments Date Code Description Provider 03/30/2019 R30.0 Dysuria Irene Moore M.D. 03/23/2019 Z01.810 Encounter for preprocedural DO ANGY Brown cardiovascular examination 03/23/2019 J35.01 Chronic tonsillitis Donald Le, DO [facility] 03/23/2019 R00.2 Palpitations Donald SRita Le, DO [facility] 03/23/2019 R06.81 Apnea, not elsewhere classified Donald AlvarezRita Le, DO [facility] 03/23/2019 I49.3 Ventricular premature depolarization Donald Bonnie Le, DO [facility] 03/22/2019 Z12.4 Encounter for screening for malignant Annie Burrell MD neoplasm of cervix 03/22/2019 R00.2 Palpitations Annie Burrell MD 03/22/2019 J35.01 Chronic tonsillitis Annie Burrell MD 02/24/2019 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anus and rectum Sherrie [place] NP 02/24/2019 Z80.0 Family history of malignant neoplasm Sherrie [place] NP of digestive organs 02/15/2019 R00.2 Palpitations Annie Burrell MD 02/11/2019 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anus and rectum Ramos Hogan MD, FACS 02/10/2019 R00.2 Palpitations Alice Mann M.D. 02/09/2019 R00.2 Palpitations Donald Le, DO [facility] 02/09/2019 R00.2 Palpitations Nurse Visit IC 02/09/2019 R00.2 Palpitations Ica ECHO Schedule 02/08/2019 R00.2 Palpitations Annie Burrell MD 02/08/2019 J35.01 Chronic tonsillitis Annie Burrell MD 02/08/2019 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anus and rectum Annie Burrell MD Plan of Treatment Future Appointment(s):06/15/2019 8:00 am - Koffi Louis MD at [facility] Ovcbqkoxdprvlouq32/31/2019 9:00 am - Annie Burrell MD at [facility] Internal Medicine - Ccmob03/30/2019 - Irene Moore M.D.R30.0 DysuriaNew Labs:Urinalysis Profile , Ordered: 03/30/19Comments:it does not appear to be an infection , the cramping can be a part of your symptoms preceeding the upcoming period . If symptoms worsen in terms of pain , please let me know Functional Status Description No Information Available Mental Status Description No Information Available Referrals Refer to Reason for Referral Status Appt Date Donald Le DO, [facility] Sent 03/23/2019 [address] [place] [address] [phone] Koffi Louis MD rectal bleeding; mother with colon ca dx'd in Closed 30's [address] [place] [id number] [phone] Alec Rivera MD Closed 02/15/2019 [address] [place] [address] [phone] Ramos Hogan MD Sent 02/11/2019 [address] [place] [address] [phone]
--- OUTSIDE RECORDS SUMMARY | 2019-05-01 16:51 | XMS REPORT | Continuity of Care Document ---
:1996 External Reference #:[id number] Author Name Donald Le DO FACC (transmitted by agent of provider Myrtle Chu) Address [facility] [place] [address] Care Team Providers Name Role Phone Annie Burrell MD - Internal Medicine Care Team Information [employer] [phone] Problems Active Problems Provider Date Polycystic ovary [...] Use Denies Drug Use Smoking Status Reviewed: 03/23/19 Patient has never smoked Exercise Type/Frequency Exercises [...] 02/15/2019 10mg at night as Tablets needed [place]-Linyah 1 by mouth every Unknown day 0.25-35mg-mcg Tablets Probiotic With 2 cap po daily Unknown Prebiotic And Am Cranberry Immunizations Description No Information Available Vital Signs Date Vital Result Comment 03/23/2019 11:39am Height 67 inches 5'7" Weight [...] kg/m2 Ejection Fraction 55-60% date 02/09/19 ECHO 03/22/2019 3:53pm Height 67.5 inches 5'7.50" Weight 231.50 lb Heart Rate 96 /min BP Systolic Sitting 115 mmHg BP Diastolic Sitting 77 mmHg Body Temperature 98.2 F O2 % BldC Oximetry 96 % BMI (Body Mass Index) 35.7 kg/m2 Results Test Acquired Date Facility Test Result H/L Range Note Laboratory test 03/23/2019 [facility] Magnesium <pending> finding [address] [place] [address] [phone] CBC Auto Diff 02/08/2019 [facility] White Blood 7.5 Normal 3.5 -10.[address] Count 10^3/[place] [address] [phone] Red Blood Count 4.63 10^6/uL Normal 3.70-4.87 [...] Blood Cells % 0.0 Comp Metabolic 02/08/2019 [facility] Sodium 139 mmol/L Normal 135-[address] [place] [address] [phone] Potassium 4.2 mmol/L Normal 3.5-5.0 Chloride 106 [...] >60 Egfr 102.6 >60 1 Laboratory 02/08/2019 [facility] TSH (Thyroid 0.75 Normal 0.34 -5.60 test finding [address] Stim Horm) mcIU/[place] [address] [phone] 1 Because ethnic data is not always [...] dialysis) Procedures Date Code Description Status 03/23/2019 92084 EKG Tracing & Interpretation Completed 02/11/2019 49198 Anoscopy Completed 02/10/2019 95151 Holter Monitor Review (24 hr)dr review & interp only Completed 02/09/2019 10621 ECHO Transthoracic, Real-Time 2D With Doppler And Color Completed Flow 02/09/2019 08215 ECHO Transthoracic, Real-Time 2D With Doppler And Color Completed Flow 02/09/2019 73944 ECG Monitor/Recording W/Visual Superimposition Scanning Completed Medical Devices Description No Information Available Encounters Type Date Location Provider Dx Diagnosis Office Visit 02/24/2019 [facility] Gastroenterology Sherrie [place] NP 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3:00p anus and rectum Z80.0 Family history of malignant neoplasm of digestive organs Office Visit 02/15/2019 4:00p [facility] Internal Annie Burrell, R00.2 Palpitations Medicine - [facility] Office Visit 02/11/2019 3:45p Surgical Ramos Hogan, 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anus [facility] , FACS and rectum Office Visit 02/08/2019 11:20a [facility] Internal Annie Burrell R00.2 [facility] J35.01 Chronic tonsillitis 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anus and rectum Assessments Date Code Description Provider 03/23/2019 R00.2 Palpitations Donald Le DO FAC 03/23/2019 R06.81 Apnea, not elsewhere classified Donald Le DO FAC 03/23/2019 Z01.810 Encounter for preprocedural Donald Le DO [facility] cardiovascular examination 03/23/2019 I49.3 Ventricular premature depolarization Donald Le DO FAC 03/22/2019 Z12.4 Encounter for screening for malignant [...] Alice Mann M.D. 02/09/2019 R00.2 Palpitations Donald Le DO FACC 02/09/2019 R00.2 Palpitations Nurse Visit IC 02/09/2019 R00.2 Palpitations Ica ECHO Schedule 02/08/2019 R00.2 Palpitations Annie Burrell MD 02/08/2019 J35.01 Chronic tonsillitis Annie Burrell MD 02/08/2019 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anus and rectum Annie Burrell MD Plan of Treatment Future Appointment(s):06/15/2019 8:00 am - Koffi Louis MD at [facility] Wbmdnozfnunwycks83/31/2019 9:00 am - Annie Burrell MD at [facility] Internal Medicine - Ccmob03/23/2019 - Donald Le DO FACCR00.2 PalpitationsFollow up: PRNR06.81 Apnea, not elsewhere classifiedNew Orders:Overnight Oximetry, Scheduled: 03/26/19Z01.810 Encounter for preprocedural cardiovascular gobdvwceqtsV02.3 Ventricular premature depolarizationNew Medication:Metoprolol Succinate ER 25 mg - 1 by mouth every day Functional Status Description No Information Available Mental Status Description No Information Available Referrals Refer to Reason for Referral Status Appt Date Donald Le DO, [facility] Sent 03/23/[address] [place] [address] [phone] Koffi Louis MD rectal bleeding; mother with colon ca dx'd in Closed 30's 2 [place] [address] [phone] Alec Rivera MD Closed 02/15/2019 [address] [place], [place] [address] [phone] Ramos Hogan MD Sent 02/11/2019 [address] [place] [address] [place] [address] [phone]
--- OUTSIDE RECORDS SUMMARY | 2019-05-01 16:51 | XMS REPORT | Continuity of Care Document ---
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 Problems Provider Date Polycystic ovary [...] Use Denies Drug Use Smoking Status Reviewed: 03/22/19 Patient has never smoked Exercise Type/Frequency Exercises regularly Allergies, Adverse Reactions, Alerts Description No Known Drug Allergies Medications Active Medications SIG Qnty Indications Ordering Provider Date Clenpiq please take as 480ml Sherrie [place] NP 02/24/2019 10-3.5-12mg-GM directed/ sample -GM/160ML Solution Propranolol HCL take one tablet 30tabs R00.2 Annie Burrell MD 02/15/2019 10mg at night as Tablets needed [place]-Linyah 1 by mouth every Unknown day 0.25-35mg-mcg Tablets Probiotic Unknown Immunizations Description No Information Available Vital Signs Date Vital Result Comment 03/22/2019 3:53pm Height 67.5 inches 5'7.50" Weight 231.50 lb Heart Rate 96 /min BP Systolic Sitting 115 mmHg BP Diastolic Sitting 77 mmHg Body Temperature 98.2 F O2 % BldC Oximetry 96 % BMI (Body Mass Index) 35.7 kg/m2 02/24/2019 3:08pm Height 67.5 inches 5'7.50" Weight 236.00 lb Heart Rate 84 /min BP Systolic 122 mmHg BP Diastolic 74 mmHg O2 % BldC Oximetry 98 % BMI (Body Mass Index) 36.4 kg/m2 Results Test Acquired Date Facility Test Result H/L Range Note CBC Auto 02/08/2019 [facility] White Blood 7.5 10^3/uL Normal 3.5-10.[address] [place] [address] [phone] Red Blood Count 4.63 10^6/uL Normal 3.70-4.87 [...] Blood Cells % 0.0 Comp Metabolic 02/08/2019 [facility] Sodium 139 mmol/L Normal 135-[address] [place] [address] [phone] Potassium 4.2 mmol/L Normal 3.5-5.0 Chloride 106 [...] >60 Egfr 102.6 >60 1 Laboratory 02/08/2019 [facility] TSH (Thyroid 0.75 Normal 0.34 -5.60 test finding [address] Stim Horm) mcIU/mL [place] [id number] [phone] 1 Because ethnic data is not always [...] (or dialysis) Procedures Date Code Description Status 02/11/2019 74624 Anoscopy Completed 02/10/2019 20011 Holter Monitor Review (24 hr)dr miranda & interp only Completed 02/09/2019 78281 ECHO Transthoracic, Real-Time 2D With Doppler And Color Completed Flow 02/09/2019 02264 ECHO Transthoracic, Real-Time 2D With Doppler And Color Completed Flow 02/09/2019 21942 ECG Monitor/Recording W/Visual Superimposition Scanning Completed Medical Devices Description No Information Available Encounters Type Date Location Provider Dx Diagnosis Office Visit 02/24/2019 [facility] Gastroenterology Sherrie [place] NP 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3:00p anus and rectum Z80.0 Family history of malignant neoplasm of digestive organs Office Visit 02/15/2019 4:00p [facility] Internal Annie Burrell, R00.2 [facility] Office Visit 02/11/2019 3:45p Surgical Ramos Hogan, 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anus [facility] , FACS and rectum Office Visit 02/08/2019 11:20a [facility] Internal Annie Burrell, R00.2 Palpitations Medicine [facility] J35.01 Chronic tonsillitis 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anus and rectum Assessments Date Code Description Provider 03/22/2019 Z12.4 Encounter for screening for malignant Annie Burrell MD neoplasm of cervix 03/22/2019 R00.2 Palpitations Annie Burrell MD 03/22/2019 J35.01 Chronic tonsillitis Annie Burrell MD 02/24/2019 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anus and rectum Sherrie [place] NP 02/24/2019 Z80.0 Family history of malignant neoplasm of Sherrie [place] NP digestive organs 02/15/2019 R00.2 Palpitations Annie Burrell [...] 8:00 am - Koffi Louis MD at [facility] Rtlecvekxyhcudjs20/31/2019 9:00 am - Annie Burrell MD at [facility] Internal Medicine - Ccmob03/22/2019 - Annie Burrell MDZ12.4 Encounter for screening for malignant neoplasm of cervixFollow up:PAYAL pap opyoejP80.2 PalpitationsReferral:Donald Le DO, FACC, Cardiovsclr QdorcldC72.01 Chronic tonsillitisComments:ENT surgery scheduled in May Functional Status Description No Information Available Mental Status Description No Information Available Referrals Refer to Dr Reason for Referral Status Appt Date Donald Le DO, FACC Sent [address] [place] [address] [phone] Koffi Louis MD rectal bleeding; mother with colon ca dx'd in Closed 30's [address] [place] [address] [phone] Alec Rivera MD Closed 02/15/2019 [address] [place] [address] [phone] Ramos Hogan MD Sent 02/11/2019 [address] [place] [address] [phone]
--- OUTSIDE RECORDS SUMMARY | 2019-05-01 16:51 | XMS REPORT | Continuity of Care Document ---
:1996 External Reference #:[id number] Author Name Donald Le DO FACC (transmitted by agent of provider Patricia Stanley) Address [address] 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 Provider Date Polycystic ovary [...] 02/15/2019 10mg at night as Tablets needed [place]-Linyah 1 by mouth every Unknown day 0.25-35mg-mcg [...] Result H/L Range Note Laboratory test 03/23/2019 [facility] Magnesium <pending> finding [address] [place] [address] [phone] CBC Auto Diff 02/08/2019 [facility] White Blood 7.5 Normal 3.5 -10.[address] Count 10^3/[place] [address] [phone] Red Blood Count 4.63 10^6/uL Normal 3.70-4.87 [...] Blood Cells % 0.0 Comp Metabolic 02/08/2019 [facility] Sodium 139 mmol/L Normal 135-[address] [place] [address] [phone] Potassium 4.2 mmol/L Normal 3.5-5.0 Chloride 106 [...] >60 Egfr 102.6 >60 1 Laboratory 02/08/2019 [facility] TSH (Thyroid 0.75 Normal 0.34 -5.60 test finding [address] Stim Horm) mcIU/[place] [address] [phone] 1 Because ethnic data is not always [...] dialysis) Procedures Date Code Description Status 03/23/2019 63868 EKG Tracing & Interpretation Completed 02/11/2019 61825 Anoscopy Completed 02/10/2019 65533 Holter Monitor Review (24 hr)dr review & interp only Completed 02/09/2019 34043 ECHO Transthoracic, Real-Time 2D With Doppler And Color Completed Flow 02/09/2019 62221 ECHO Transthoracic, Real-Time 2D With Doppler And Color Completed Flow 02/09/2019 82464 ECG Monitor/Recording W/Visual Superimposition Scanning Completed Medical Devices Description No Information Available Encounters Type Date Location Provider Dx Diagnosis Office Visit 02/24/2019 [facility] [address] Gastroenterology Sherrie [place] NP 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3:00p anus and rectum Z80.0 Family history of malignant neoplasm of digestive organs Office Visit 02/15/2019 4:00p [facility] [address] Internal Annie Burrell, R00.2 Palpitations Medicine - [facility] Office Visit 02/11/2019 3:45p Surgical Ramos Hogan, 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anus [facility] [address] , FACS and rectum Office Visit 02/08/2019 11:20a [facility] [address] Internal Annie Burrell R00.2 [facility] J35.01 Chronic tonsillitis 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anus and rectum Assessments Date Code Description Provider 03/23/2019 R00.2 Palpitations Donald Le DO FAC 03/23/2019 R06.81 Apnea, not elsewhere classified Donald Le DO FAC 03/23/2019 Z01.810 Encounter for preprocedural Donald Le DO [facility] cardiovascular examination 03/23/2019 I49.3 Ventricular premature [...] 8:00 am - Koffi Louis MD at [facility] [address] Fwztkwmxuobptdjy30/31/2019 9:00 am - Annie Burrell MD at [facility] [address] Internal Medicine - Ccmob03/23/2019 - Donald Le DO FACCR00.2 PalpitationsFollow up: PRNR06.81 Apnea, not elsewhere classifiedNew Orders:Overnight Oximetry, Scheduled: 03/26/19Z01.810 Encounter for preprocedural cardiovascular szudfpydnvhC26.3 Ventricular premature depolarizationNew Medication:Metoprolol Succinate ER 25 mg - 1 by mouth every day Functional Status Description No Information Available Mental Status Description No Information Available Referrals Refer to Reason for Referral Status Appt Date Donald Le DO, [facility] Sent 03/23/2019 [address] [place] [address] [phone] Koffi Louis MD rectal bleeding; mother with colon ca dx'd in Closed 30's [address] [place] [address] [phone] Alec Rivera MD Closed 02/15/2019 [address] [place], [place] [address] [phone] Ramos Hogan MD Sent 02/11/2019 [address] [place] [address] [place] [address] [phone]
--- NOTE | 2019-05-01 16:57 | ED ---
GI/ HPI - HPI Summary HPI Summary: 23 year old F arriving via private car with mother complains of intermittent episodes of pelvic pain, located at right lower abdomen, described as pressure and burning, each episode lasting several hours x1.5 months. She states she does not have pain every day. She states pain occurs with no specific activity. Nausea. Constipation which is usual for patient. No fever, vomiting, diarrhea, hematuria, vaginal bleeding or vaginal discharge. Has been seen by [facility]. Had transvaginal US done 4 days ago. Today 05/01 pain came back and was severe. Took Excedrin prior to arrival with some relief. Pain currently an ache rated 6/ 10 in severity. Symptoms aggravated by nothing. Symptoms alleviated by Excedrin. Medications reviewed. Allergies noted. Patient states she has urinary urgency. No dysuria. Was seen by primary care provider who ruled out bladder infection and placed on Bactrim for 3 days. Patient is sexually active. Recently tested for STDs which was negative. Hx PCOS. On oral contraception. Hx PVCs. Sees cardiology. Had blood work done 1 month ago which was normal. 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 - History of Current Complaint Chief Complaint: EDUrogenitalProblems Time Seen by Provider: 05/01/19 16:47 Stated Complaint: PELVIC PAIN PER PT Hx Obtained From: Patient Onset/Duration: Started Weeks Ago, Still Present Timing: Intermittent, Lasting Hours Current Severity: Moderate Pain Intensity: 6 Pain Characteristics: Burning, Pressure Aggravating Factor(s): Nothing Alleviating Factor(s): Medication - Excedrin - Allergy/Home Medications Allergies/Adverse Reactions: Allergies Allergy/AdvReac Type Severity Reaction Status Date / Time sulfamethoxazole Allergy GI Upset Verified 05/01/19 16:44 [From Bactrim] trimethoprim [From Bactrim] Allergy GI Upset Verified 05/01/19 16:44 Home Medications: Home Medications Metoprolol Succinate 25 mg PO DAILY 05/01/19 [History Confirmed 05/01/19] PMH/Surg Hx/FS Hx/Imm Hx Previously Healthy: No - hx PCOS Endocrine/Hematology History: Denies: Hx Diabetes, Hx Thyroid Disease Cardiovascular History: Reports: Other Cardiovascular Problems/Disorders - PVCs Denies: Hx Hypertension Respiratory History: Denies: Hx Asthma, Hx Chronic Obstructive Pulmonary Disease (COPD) GI History: Denies: Hx Ulcer - Surgical History Surgery Procedure, Year, and Place: [place] teeth Infectious Disease History: No Infectious Disease History: Denies: Hx Clostridium Difficile, Hx Hepatitis, Hx Human Immunodeficiency Virus (HIV), Hx of Known/Suspected MRSA, Hx Shingles, Hx Tuberculosis, Hx Known/ Suspected VRE, Hx Known/Suspected VRSA, History Other Infectious Disease, Traveled Outside the [place] in Last 30 Days - Family History Family History: Mother has varicose veins and pelvic congestion syndrome - Social History Alcohol Use: None Hx Substance Use: No Substance Use Type: Reports: None Hx Tobacco Use: No Smoking Status (MU): Never Smoked Tobacco Review of Systems Negative: Fever Positive: Nausea, Other - constipation. Negative: Vomiting, Diarrhea Genitourinary: Negative - vaginal bleeding Positive: pain - pelvic, urgency. Negative: dysuria, discharge, hematuria All Other Systems Reviewed And Are Negative: Yes Physical Exam - Summary Physical Exam Summary: Constitutional: Well-developed, Well-nourished, Alert. (-) Distressed Skin: Warm, Dry HENT: Normocephalic; Atraumatic Eyes: Conjunctiva normal Neck: Musculoskeletal ROM normal neck. (-) JVD, (-) Stridor, (-) Tracheal deviation Cardio: Rhythm regular, rate normal, Heart sounds normal; Intact distal pulses; Radial pulses are 2+ and symmetric. (-) Murmur Pulmonary/Chest wall: Effort normal. (-) Respiratory distress, (-) Wheezes, (-) Rales Abd: Soft, mild right adnexal tenderness, (-) Distension, (-) Guarding, (-) Rebound Musculoskeletal: (-) Edema Lymph: (-) Cervical adenopathy Neuro: Alert, Oriented x3 Psych: Mood and affect Normal Triage Information Reviewed: Yes Vital Signs On Initial Exam: Initial Vitals Temp Pulse Resp BP Pulse Ox 98.0 F 84 16 138/89 98 05/01/19 16:39 05/01/19 16:39 05/01/19 16:39 05/01/19 16:39 05/01/19 16:39 Vital Signs Reviewed: Yes Procedures - Sedation Patient Received Moderate/Deep Sedation with Procedure: No Diagnostics - Vital Signs Vital Signs Temp Pulse Resp BP Pulse Ox 05/01/19 16:39 98.0 F 84 16 138/89 98 - Laboratory Result Diagrams: 05/01/19 17:18 05/01/19 17:18 Lab Statement: Any lab studies that have been ordered have been reviewed, and results considered in the medical decision making process. Re-Evaluation - Re-Evaluation First Eval Re-Evaluation Time: 17:51 Comment: understands d/c instructions GIGU Course/Dx - Course Course Of Treatment: Patient is here with one and a half months of periodic right lower quadrant pain. Patient is being worked up as an outpatient for this with a negative ultrasound 4 days ago. Patient's also been tested for STDs and denies any STD risk factors. Patient had blood or performed today which was grossly unremarkable set of a mildly elevated creatinine. Patient did have a UA which was consistent with a UTI. Patient was started on Macrobid. Patient was given Dr. Mosley for follow-up for possible pelvic congestion syndrome and was encouraged helped her PCP/CERTIFIED MIDWIFE for further workup and outpatient CT scan that she is in the process of setting up. - Diagnoses Provider Diagnoses: Right lower quadrant pain, Urinary tract infection Discharge ED - Sign-Out/Discharge Documenting (check all that apply): Patient Departure - Discharge Plan Condition: Stable Disposition: HOME Prescriptions: Nitrofurantoin Monohyd/M-Cryst [Macrobid 100 mg Capsule] 100 mg PO BID 5 Days # 10 cap Patient Education Materials: Urinary Tract Infection in Women (ED) Referrals: Arnie Nova MD [Medical Doctor] - 1 Day Additional Instructions: Take antibiotics as prescribed. Follow up with Dr. Nova for evaluation for pelvic congestion syndrome. PLEASE RETURN TO EMERGENCY DEPARTMENT FOR ANY NEW OR WORSENING SYMPTOMS such as severe pain with vomiting or anything atypical for your symptoms. Please make all follow-ups in 1-3 days unless I advise you otherwise. - Billing Disposition and Condition Condition: STABLE Disposition: Home - Attestation Statements Document Initiated by Abdi: Yes Documenting Scribe: Heike Cerna Provider For Whom Abdi is Documenting (Include Credential): Trav Vieira MD Scribe Attestation: Heike Bae, scribed for Trav Vieira MD on 05/01/19 at 1806. Scribe Documentation Reviewed: Yes Provider Attestation: The documentation as recorded by the Heike ewing accurately reflects the service I personally performed and the decisions made by me, Trav Vieira MD Status of Scribe Document: Viewed
[2019-05-01 17:27] LABS: ABS Eosinophils 0.1 10^3/ul (0-0.6); ABS Monocytes 0.8 10^3/ul (0-0.8); ABS Neutrophils 5.8 10^3/ul (1.5-7.7); Eosinophil % 1.1 %; Hematocrit 41 % (35-47); Hemoglobin 14.1 g/dL (12.0-16.0); Mean Corpuscular HGB Conc 34 g/dL (31-36); Mean Corpuscular Hemoglobin 30 pg (27-31); Mean Corpuscular Volume 87 fL (80-97); Mean Platelet Volume 7.7 fL (7.4-10.4); Nucleated Red Blood Cells % 0.1; Platelet Count 290 10^3/uL (150-450); Red Cell Distribution Width 13 % (10-15); White Blood Count 9.8 10^3/uL (3.5-10.8)
[2019-05-01 17:29] LABS: Urine Appearance Cloudy; Urine Bilirubin Negative (Negative); Urine Blood Negative (Negative); Urine Color Yellow; Urine Glucose Negative (Negative); Urine Ketones Negative (Negative); Urine Nitrite Negative (Negative); Urine Protein Negative (Negative); Urine Specific Gravity 1.012 (1.010-1.030); Urine Urobilinogen Negative (Negative)
[2019-05-01 17:30] LABS: Urine Bacteria Absent (Absent); Urine Red Blood Cell Trace(0-2/hpf) (Absent); Urine Squamous Epithelial Cell Present (Absent); Urine White Blood Cell 2+(11-20/hpf) (Absent)
[2019-05-01 17:45] LABS: Albumin/Globulin Ratio 1.1 (1-3); BUN/Creatinine Ratio 16.5 (8-20); Calcium 9.4 mg/dL (8.6-10.3); EGFR African American 86.9 (>60); EGFR Non-African American 71.8 (>60); Globulin 3.6 g/dL (2-4); Potassium 3.9 mmol/L (3.5-5.0); Total Bilirubin 0.3 mg/dL (0.2-1.0); Total Protein 7.6 g/dL (6.4-8.9)
[2019-05-01 17:59] VITALS: BP 124/91
== END 2019-05-01 18:00 | disposition home or self-care (01) ==
LOC: ED 16:34
DX: N39.0 Urinary tract infection, site not specified (principal); Z79.899 Other long term (current) drug therapy; Z88.1 Allergy status to other antibiotic agents; Z88.2 Allergy status to sulfonamides
CPT/HCPCS: 36415; 80053; 81003; 81015; 85025; 87086; 99282

== ENCOUNTER → 2019-05-20 08:15 | Day surgery (SDC) | payer OTHER ==
[~2019-05-20 08:15] MED LIST: Buffered Lidocaine 1% SYRIN* 1 ML/SYRINGE INTRADERM ONE; Dexamethasone IV* 4 MG/ML 1 ML (4 MG) ONE; Famotidine IV* 10 MG/ML 2 ML (20 mg) IV ONE; Famotidine IV* 10 MG/ML 2 ML (20 mg) ONE; Ketorolac INJ* 30 MG/ML 1 ML VIAL ONE; Lactated Ringers 1000 ML Bag* 1,000 ML IV SCH; Lidocaine 2% PF * 5 ML VIAL ONE; Midazolam* 1 MG/ML 5 ML VIAL (5 MG) ONE; Naloxone* 0.4 MG/ML 1 ML VIAL IV PRN; Ondansetron INJ* 2 MG/ML VIAL IV PRN; Ondansetron INJ* 2 MG/ML VIAL ONE; Propofol* 10 MG/ML 20 ML BTL ONE; Scopolamine 1.5 mg* PATCH TRANSDERM PRN; Scopolamine PATCH Remove* 1 NOTE MISC PATCH OFF ONE; fentaNYL* 50 MCG/ML 2 ML VIAL (100 MCG VIAL) ONE
[2019-05-20] MEDS: fentaNYL* 50 MCG/ML 2 ML VIAL (100 MCG VIAL) IV PRN ×3 (11:16→11:34)
[2019-05-20 12:44] VITALS: BP 119/73
--- NOTE | 2019-05-20 14:36 | OP ---
DATE OF OPERATION: 05/20/19 - [facility] DATE OF : [birth year] SURGEON: Alec Rivera MD. 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 ANESTHESIA: General. PRE-OP DIAGNOSIS: Chronic tonsillitis. POST-OP DIAGNOSIS: Chronic tonsillitis. OPERATIVE PROCEDURE: Tonsillectomy. ESTIMATED BLOOD LOSS: Negligible. SPECIMENS: Tonsils to Pathology. DESCRIPTION OF PROCEDURE: The patient was brought to the operating room. General anesthesia was induced and oral endotracheal tube was placed. The table was turned. The patient was draped and time-out was performed. A McIvor mouth gag was used to facilitate exposure of the oropharynx. It was noted prior to placement of the mouth gag that one of her upper incisors had a small chip and also this appeared to be pre-existing. Once the mouth gag was in place. The oral cavity was opened. The mouth gag was suspended from the Luz stand and the procedure was begun. A straight Allis forceps was used to grasp the tonsil and it was retracted medially. The coblation device was used at a setting of 7 and 3 to dissect the tonsil free off its fossa. There was minimal bleeding. The procedure was performed in an identical fashion on the left side. Again, the tonsil was removed utilizing the coblation device at a setting of 7 and 3 with minimal bleeding. Once the tonsils were out, the coag settings were turned up to 5, and the superior and inferior pole regions were prophylactically cauterized. The mouth gag was then let down for a period of a minute. It was opened again. There was no evidence of active bleeding. An orogastric tube was passed and the stomach contents were evacuated. The patient was then returned to the care of the anesthesiologist, extubated without difficulty. [id number] #: [id number] MTDD
== END | disposition home or self-care (01) ==
LOC: OR 08:15
PROVIDERS: ATTEND Otolaryngology
DX: J35.01 Chronic tonsillitis (principal); I49.3 Ventricular premature depolarization; E28.2 Polycystic ovarian syndrome
CPT/HCPCS: 81025; 88304; J1100; J1885; J2250; J2405; J2704; J3010

== ENCOUNTER 2019-05-28 16:00 | Emergency (ER) | payer OTHER ==
--- OUTSIDE RECORDS SUMMARY | 2019-05-28 16:20 | XMS REPORT | Continuity of Care Document ---
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 [phone] Problems Active Problems Provider Date Chronic tonsillitis Topher Nina MD Onset: 05/27/2019 Social History Type Date Description Comments Sex [...] Medications SIG Qnty Indications Ordering Date Provider Prednisone 4 tabs by mouth 14tabs Alec Sky 05/23/2019 10mg every day x2 d, MD Nicole Tablets then 2 tabs by mouth every day x2d, then 1 tab by mouth every day x2d, then off Hydrocodone 15 milliliters by 420ml Alec Sky 05/18/2019 Bitartrate/Acetamino mouth every 6 hours MD Nicole phen as needed pain 7.5-325mg/15ML Solution Laporte-Linyah Take One Tablet By Unknown Mouth Every Day 0.25-35mg-mcg Tablets Metoprolol Succinate Take One Tablet By Unknown ER Mouth Every Day 25mg Tablets ER 24HR Propranolol HCL Take One Tablet By Unknown 10mg Mouth AT Night as Tablets Needed Immunizations Description No Information Available Vital Signs Date Vital Result Comment 05/27/2019 12:33pm Weight 225.00 lb Weight 102.060 kg Height 67.5 inches 5'7.50" Height in cm's 171.4 cm BMI (Body Mass Index) 34.7 kg/m2 04/25/2019 9:07am BP Systolic 120 mmHg BP Diastolic 71 mmHg Heart Rate 78 /min Respiratory Rate 16 /min Weight 230.00 lb Weight 104.328 kg Height 67.5 inches 5'7.50" Height in cm's 171.4 cm BMI (Body Mass Index) 35.5 kg/m2 Results Test Acquired Date Facility Test Result H/L Range Note Surgical 05/20/2019 [facility] Surgical SEE RESULT 1 Pathology c/o Department of [place] [address] [phone] PDFReport SEE IMAGE 1 SEE RESULT BELOW Name: FERNANDO MASSEY : [address]: Alec Rivera MD Acct: [id number] Unit: [id number] AGE: 23 Location: OR Re05/20/19 SEX: F Status: REG [facility] SPEC: [id number] BERTO: 05/20/19- SUBM DR: Alec Rivera MD REQ: [id number] RECD: 05/20/19 STATUS: SOUT _ ORDERED: LEVEL 3/2 FINAL DIAGNOSIS 1. Tonsil, right, tonsillectomy: -- Benign tonsillar tissue with reactive lymphoid hyperplasia. 2. Tonsil, left, tonsillectomy: -- Benign tonsillar tissue with reactive lymphoid hyperplasia. PRE-OPERATIVE DIAGNOSIS Chronic tonsillitis GROSS DESCRIPTION 1. The specimen is received in formalin labeled, Right Tonsil, and consists of a 2.8 x 1.9 x 0.3 cm montague-pink ovoid cerebriform to focally cauterized and disrupted tonsil with scant adherent red-brown blood clot. The cut surface is glistening montague-pink with normal crypts. The specimen is inked, serially sectioned and route service representative sections are submitted in one cassette. 2. The specimen is received in formalin labeled, Left Tonsil, and consists of a 3.0 x 2.2 x 1.8 cm montague-pink ovoid cerebriform and focally cauterized tonsil with a small amount of adherent red-brown blood clot. The cut surface is glistening montague-pink with normal crypts. The specimen is inked, serially sectioned and route service representative sections are submitted in one cassette. CONTINUED ON NEXT PAGE DEPARTMENT OF PATHOLOGY, [address] [place], [place] [id number] Ilia Mijares M.D. Director [facility] # [id number] Signed by and Reported on: Debi Alexandra MD 05/23/19 1517 END OF REPORT DEPARTMENT OF PATHOLOGY, [address] [place] [id number] Ilia Mijares M.D. Director [facility] # [id number] Procedures Date Code Description Status 05/27/2019 66580 Control Oropharyngeal Hemorrhage Complex Completed Medical Devices Description No Information Available Encounters Type Date Location Provider Dx Diagnosis Office Visit 04/25/2019 Yolanda,[facility], J35.01 Chronic tonsillitis 9:15a 05/11/07 NEMO J35.1 Hypertrophy of tonsils Office Visit 02/15/2019 Ortley,[facility] Alec Sky J35.01 Chronic 2:45p 05/11/07 MD Nicole tonsillitis J35.1 Hypertrophy of tonsils Assessments Date Code Description Provider 05/27/2019 J35.01 Chronic tonsillitis Topher Nina MD 04/25/2019 J35.01 Chronic tonsillitis [facility] PA-C 04/25/2019 J35.1 Hypertrophy of tonsils [facility] PA-C 02/15/2019 J35.01 Chronic tonsillitis Alec Rivera MD 02/15/2019 J35.1 Hypertrophy of tonsils Alec Rivera MD Plan of Treatment Future Appointment(s):06/20/2019 9:15 am - [facility] PA-C at [facility] - Topher Nina MDJ35.01 Chronic tonsillitisComments:Topical anesthetic was utilized right oropharynx, subsequent silver nitrate cauterization of the right tonsil fossa. Functional Status Description No Information Available Mental Status Description No Information Available Referrals Description No Information Available
--- OUTSIDE RECORDS SUMMARY | 2019-05-28 16:20 | XMS REPORT | Continuity of Care Document ---
:1995 External Reference #:[id number] Author Name Arnie Nova M.D. (transmitted by agent of provider Mercedez Eatont) Address [address] [place] [address] Care Team Providers Name Role Phone Annie Burrell MD - Internal Medicine Care Team Information Optical Glass Inspector [phone] Problems Active Problems Provider Date Polycystic ovary syndrome Annie Burrell MD Onset: 02/08/2019 Family history of malignant neoplasm of Annie Burrell MD Onset: 02/08/2019 gastrointestinal tract Note: Mother had a right hemicolectomy and reversal ileostomy, non-Hodgkin's lymphoma Grandfather-colon cancer Palpitations Annie Burrell MD Onset: 02/08/2019 Note: PVC's no symptoms on propranolol. Chronic pelvic pain of female Arnie Nova M.D. Onset: 05/18/2019 Social History Type Date Description Comments Sex Unknown Tobacco Use Start: Unknown Never Smoked Cigarettes Smoking Status Reviewed: 05/18/19 Never Smoked Cigarettes ETOH Use Rarely consumes alcohol 2 drinks/month on average Tobacco Use Start: Unknown Patient has never smoked Recreational Drug Use Denies Drug Use Exercise Type/Frequency Exercises regularly Allergies, Adverse Reactions, Alerts Description No Known Drug Allergies Medications Active Medications SIG Qnty Indications Ordering Provider Date Sprintec 28 1 by mouth every Unknown 05/17/2019 day 0.25-35mg-mcg Tablets Metoprolol Succinate 1 by mouth every 30tabs I49.3 Donald Le, 2018 ER day DO FACC 25mg Tablets ER 24HR Clenpiq please take as 480ml Sherrie Carrera 02/24/2019 10-3.5-12mg-GM directed/ sample BUBBA Rankin -GM/160ML Solution Propranolol HCL take one tablet 30tabs R00.2 Annie Burrell MD 02/15/2019 10mg at night as Tablets needed Probiotic With 2 cap po daily Unknown Prebiotic And Am Cranberry History Medications Sulfamethoxazole/Trimethoprim DS 1 by mouth 6tabs Shireen Lockett, 2018 - 800-160mg Tablets twice daily M.D., FACP 04/27/2019 Pyridium 100mg 1-2 tabs by 14tabs Shireen Lockett, 2018 - Tablets mouth three M.D., FACP 04/27/2019 times daily as needed Immunizations Description No Information Available Vital Signs Date Vital Result Comment 05/18/2019 7:40am Height 67 inches 5'7" Weight 229.50 lb with shoes Heart Rate 80 /min left radial BP Systolic Sitting 124 mmHg ule reg cuff BP Diastolic Sitting 86 mmHg ule reg cuff BMI (Body Mass Index) 35.9 kg/m2 03/30/2019 8:48am Height 67 inches 5'7" Weight 231.00 lb Heart Rate 76 /min BP Systolic Sitting 128 mmHg BP Diastolic Sitting 75 mmHg O2 % BldC Oximetry 97 % BMI (Body Mass Index) 36.2 kg/m2 Results Test Acquired Date Facility Test Result H/L Range Note CBC Auto 05/01/2019 [facility] White Blood 9.8 10^3/uL Normal 3.5-10.[address] [place] [address] [phone] Red Blood Count 4.70 10^6/uL Normal 3.70-4.87 Hemoglobin 14.1 g/dL Normal 12.0-16.0 Hematocrit 41 % Normal 35-47 Mean Corpuscular Volume 87 fL Normal 80-97 Mean Corpuscular Hemoglobin 30 pg Normal 27-31 Mean Corpuscular HGB Conc 34 g/dL Normal 31-36 Red Cell Distribution Width 13 % Normal 10-15 Platelet Count 290 10^3/uL Normal 150-450 Mean Platelet Volume 7.7 fL Normal 7.4-10.4 Abs Neutrophils 5.8 10^3/uL Normal 1.5-7.7 Abs Lymphocytes 3.0 10^3/uL Normal 1.0-4.8 Abs Monocytes 0.8 10^3/uL Normal 0-0.8 Abs Eosinophils 0.1 10^3/uL Normal 0-0.6 Abs Basophils 0.0 10^3/uL Normal 0-0.2 Abs Nucleated RBC 0.0 10^3/uL Granulocyte % 58.8 % Lymphocyte % 31.0 % Monocyte % 8.6 % Eosinophil % 1.1 % Basophil % 0.5 % Nucleated Red Blood Cells % 0.1 Urinalysis Profile 05/01/2019 [facility] Urine Color Yellow [address] [place] [address] [phone] Urine Appearance Cloudy Urine Specific [place] 1.012 Normal 1.010-1.030 Urine pH 6.0 Normal 5-9 Urine Urobilinogen Negative Negative Urine Ketones Negative Negative Urine Protein Negative Negative Urine Leukocytes Trace Abnormal Negative Urine Blood Negative Negative Urine Nitrite Negative Negative Urine Bilirubin Negative Negative Urine Glucose Negative Negative Urine White Blood Cell 2+(11-20/hpf) Abnormal Absent Urine Red Blood Cell Trace(0-2/hpf) Absent Urine Bacteria Absent Absent Urine Squamous Epithelial Cell Present Abnormal Absent Comp Metabolic 05/01/2019 [facility] Sodium 138 mmol/L Normal 135-[address] [place] [address] [phone] Potassium 3.9 mmol/L Normal 3.5-5.0 Chloride 105 mmol/L Normal 101-111 Co2 Carbon Dioxide 26 mmol/L Normal 22-32 Anion Gap 7 mmol/L Normal 2-11 Glucose 90 mg/dL Normal 70-100 Blood Urea Nitrogen 16 mg/dL Normal 6-24 Creatinine 0.97 mg/dL High 0.51-0.95 BUN/Creatinine Ratio 16.5 Normal 8-20 Calcium 9.4 mg/dL Normal 8.6-10.3 Total Protein 7.6 g/dL Normal 6.4-8.9 Albumin 4.0 g/dL Normal 3.2-5.2 Globulin 3.6 g/dL Normal 2-4 Albumin/Globulin Ratio 1.1 Normal 1-3 Total Bilirubin 0.30 mg/dL Normal 0.2-1.0 Alkaline Phosphatase 74 U/L Normal 34-104 Alt 10 U/L Normal 7-52 Ast 11 U/L Low 13-39 Egfr Non- 71.8 >60 Egfr 86.9 >60 1 Urine Culture And 05/01/2019 [facility] Urine Culture SEE RESULT [address] [place] [address] [phone] Ua Routine 03/30/2019 [facility] Ua Specific 1.020 [place] Ua PH 5 Ua Color medium yellow Ua Appera clear Ua WBC trace Ua Protein - Ua Glucose norm Ua Ketones - Ua Bilirubin - Ua Urobilinogen norm Ua Nitrite - Ua Occult Blood 250+ Laboratory test 03/23/2019 [facility] Magnesium 2.2 mg/dL Normal 1.9-2.[address] [place] [address] [phone] CBC Auto Diff 02/08/2019 [facility] White Blood 7.5 Normal 3.5 -10.[address] Count 10^3/[place] [address] [phone] Red Blood Count 4.63 10^6/uL Normal 3.70-4.87 [...] Blood Cells % 0.0 Comp Metabolic 02/08/2019 [facility] Sodium 139 mmol/L Normal 135-[address] [place] [address] [phone] Potassium 4.2 mmol/L Normal 3.5-5.0 Chloride 106 [...] Egfr Non- 84.8 >60 Egfr 102.6 >60 3 Laboratory 02/08/2019 [facility] TSH (Thyroid 0.75 Normal 0.34 -5.60 test finding [address] Stim Horm) mcIU/[place] [address] [phone] 1 Because ethnic data is not always [...] 15-29 5 Kidney failure <15 (or dialysis) 2 SEE RESULT BELOW Name: FERNANDO MASSEY : [address]: Trav Vieira MD Acct: [id number] Unit: [id number] AGE: 23 Location: ED Re05/01/19 SEX: F Status: DEP ER SPEC: [id number] BERTO: 05/01/[address] [facility] [address]: Trav Vieira MD REQ: [id number] RECD: 05/01/19 STATUS: COMP EDITHHR DR: Annie Burrell MD _ SOURCE: URINE SPDESC: ORDERED: Urine Culture Procedure Result Reported Site Urine Culture Final 05/03/19- 0914 ML No growth of clinically significant organisms * ML - Main Lab . END OF REPORT DEPARTMENT OF PATHOLOGY, [address] [place] [address] Ilia Mijares M.D. Director [facility] # [id number] 3 Because ethnic data is not always readily [...] dialysis) Procedures Date Code Description Status 03/23/2019 75430 EKG Tracing & Interpretation Completed 02/11/2019 01130 Anoscopy Completed 02/10/2019 02388 Holter Monitor Review (24 hr)dr review & interp only Completed 02/09/2019 34204 ECHO Transthoracic, Real-Time 2D With Doppler And Color Completed Flow 02/09/2019 47578 ECHO Transthoracic, Real-Time 2D With Doppler And Color Completed Flow 02/09/2019 59233 ECG Monitor/Recording W/Visual Superimposition Scanning Completed Medical Devices Description No Information Available Encounters Type Date Location Provider Dx Diagnosis Office Visit 03/30/2019 [facility] Internal Irene Moore, R30.0 Dysuria 8:50a Medicine - Osiris Pedraza Office Visit 03/23/2019 [facility] Donald Nicole Z01.810 Encounter for 12:00p Of Kaur Le DO FACC preprocedural cardiovascular examination J35.01 Chronic tonsillitis R00.2 Palpitations R06.81 Apnea, not elsewhere classified I49.3 Ventricular premature depolarization Office Visit 03/22/2019 4:00p [facility] Internal Annie Burrell Z12.4 [facility] for malignant neoplasm of cervix R00.2 Palpitations J35.01 Chronic tonsillitis Office Visit 02/24/2019 [facility] Gastroenterology Sherrie 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3:00p Debi anus and rectum BUBBA Rankin Z80.0 Family history of malignant neoplasm of digestive organs Office Visit 02/15/2019 4:00p [facility] Internal Annie Burrell, R00.2 Palpitations Medicine - Ccmester NOVAK Office Visit 02/11/2019 3:45p Surgical Ramos Hogan, 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[facility]us [facility], FACS and rectum Office Visit 02/08/2019 11:20a [facility] Internal Annie Burrell, R00.2 Palpitations Medicine - Ccmob J35.01 Chronic tonsillitis 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anus and rectum Assessments Date Code Description Provider 05/18/2019 R10.2 Pelvic and perineal pain Arnie Nova M.D. 03/30/2019 R30.0 Dysuria Irene Moore M.D. 03/23/2019 Z01.810 Encounter for preprocedural Donald Le, DO [facility] cardiovascular examination 03/23/2019 J35.01 Chronic tonsillitis Donald Le, DO FAC 03/23/2019 R00.2 Palpitations Donald Le, DO FAC 03/23/2019 R06.81 Apnea, not elsewhere classified Donald Le, DO FAC 03/23/2019 I49.3 Ventricular premature depolarization Donald Le, DO FAC 03/22/2019 Z12.4 Encounter for screening for malignant Annie Burrell MD neoplasm of cervix 03/22/2019 R00.2 Palpitations Annie Burrell MD 03/22/2019 J35.01 Chronic tonsillitis Annie Burrell MD 02/24/2019 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anus and rectum Sherrie Rankin, BUBBA 02/24/2019 Z80.0 Family history of malignant neoplasm Sherrie Rankin NP of digestive organs 02/15/2019 R00.2 Palpitations Annie Burrell MD 02/11/2019 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anus and rectum Ramos Hogan MD, FACS 02/10/2019 R00.2 Palpitations Alice Mann M.D. 02/09/2019 R00.2 Palpitations Donald Le, DO FACC 02/09/2019 R00.2 Palpitations Nurse Visit IC 02/09/2019 R00.2 Palpitations Ica ECHO Schedule 02/08/2019 R00.2 Palpitations Annie Burrell MD 02/08/2019 J35.01 Chronic tonsillitis Annie Burrell MD 02/08/2019 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anus and rectum Annie Burrell MD Plan of Treatment Future Appointment(s):06/15/2019 8:00 am - Koffi Louis MD at [facility] Ohbiarlgynhtkuwe17/08/2020 - Arnie Nova M.D.R10.2 Pelvic and perineal painComments:The following was discussed with Fernando the time of consultation: The patient does not appear to possess any vascular etiology to account for her pelvic pain. There is a mild degree of compression of the left common iliac vein on the CT of the abdomen and pelvis dated 05/09/19, but this does not appear to be clinically significant. Even if there was more severe compression of the left common iliac vein this would classically present with left leg swelling and not only pelvic pain. I suspect this appearance is partially due to the fact that the patient appeared to be hypovolemic at the time of CT acquisition as indicated by the relatively flat IVC.I do not expect any further vascular imaging at this time to be of much yield.The patient could seek evaluation with a physical therapist with specialty training in female pelvic pain. I have submitted referral to [facility] should the patient be interested in evaluation. Functional Status Description No Information Available Mental Status Description No Information Available Referrals Refer to Reason for Referral Status Appt Date Carmen Clayton PT, OCS Created [address] [place] [address] [phone] Donald Le, DO, FACC Sent 03/23/2019 [address] [place] [address] [phone] Koffi Louis MD rectal bleeding; mother with colon ca dx'd in Closed 30's [address] [place] [id number] [phone] Alec Rivera MD Closed 02/15/2019 [address] [place] [address] [phone] Ramos Hogan MD Sent 02/11/2019 [address] [facility] [place] [address] [phone]
--- NOTE | 2019-05-28 16:56 | ED ---
Throat Pain/Nasal Congestion - HPI Summary HPI Summary: Pt is a 23 y/o F presenting to the ED with a chief complaint of tonsil pain. She had a bilateral tonsillectomy on 05/20/2019 and yesterday the right scab burst open so she had it cauterized by Dr. Nina. Today, the left scab came off and it began bleeding. She denies fever. - History of Current Complaint Chief Complaint: EDThroatPain Time Seen by Provider: 05/28/19 16:48 Hx Obtained From: Patient Onset/Duration: Sudden Onset, Lasting Hours, Still Present Severity: Moderate Associated Signs And Symptoms: Positive: Negative Cough: None Related History: Prior ENT Surgery - Allergies/Home Medications Allergies/Adverse Reactions: Allergies Allergy/AdvReac Type Severity Reaction Status Date / Time latex Allergy Severe Rash Verified 05/28/19 16:08 sulfamethoxazole Allergy Mild GI Upset Verified 05/28/19 16:08 [From Bactrim] trimethoprim [From Bactrim] Allergy Mild GI Upset Verified 05/28/19 16:08 PMH/Surg Hx/FS Hx/Imm Hx Previously Healthy: Yes Endocrine/Hematology History: Denies: Hx Diabetes, Hx Thyroid Disease Cardiovascular History: Reports: Other Cardiovascular Problems/Disorders - PVCs Denies: Hx Hypertension Respiratory History: Denies: Hx Asthma, Hx Chronic Obstructive Pulmonary Disease (COPD) GI History: Denies: Hx Ulcer History: Reports: Hx Kidney Stones Sensory History: Reports: Hx Contacts or Glasses - glasses Denies: Hx Hearing Aid Opthamlomology History: Reports: Hx Contacts or Glasses - glasses - Cancer History Hx Chemotherapy: No - Surgical History Surgery Procedure, Year, and Place: [place] teeth Hx Anesthesia Reactions: No Infectious Disease History: No Infectious Disease History: Denies: Hx Clostridium Difficile, Hx Hepatitis, Hx Human Immunodeficiency Virus (HIV), Hx of Known/Suspected MRSA, Hx Shingles, Hx Tuberculosis, Hx Known/ Suspected VRE, Hx Known/Suspected VRSA, History Other Infectious Disease, Traveled Outside the [place] in Last 30 Days - Family History Known Family History: Positive: Other Family History: Mother has varicose veins and pelvic congestion syndrome - Social History Alcohol Use: None Hx Substance Use: No Substance Use Type: Reports: None Hx Tobacco Use: No Smoking Status (MU): Never Smoked Tobacco Review of Systems Negative: Fever Positive: Other - bleeding at tonsillectomy sites All Other Systems Reviewed And Are Negative: Yes Physical Exam - Summary Physical Exam Summary: Constitutional: Well-developed, Well-nourished, Alert. (-) Distressed Skin: Warm, Dry HENT: Normocephalic; Atraumatic. R tonsil with a scar present. L tonsil with clot present. No obvious active bleeding. Eyes: Conjunctiva normal Neck: Musculoskeletal ROM normal neck. (-) JVD, (-) Stridor, (-) Tracheal deviation Cardio: Rhythm regular, rate normal, Heart sounds normal; Intact distal pulses; Radial pulses are 2+ and symmetric. (-) Murmur Pulmonary/Chest wall: Effort normal. (-) Respiratory distress, (-) Wheezes, (-) Rales Abd: Soft, (-) tenderness, (-) Distension, (-) Guarding, (-) Rebound Musculoskeletal: (-) Edema Lymph: (-) Cervical adenopathy Neuro: Alert, Oriented x3 Psych: Mood and affect Normal Triage Information Reviewed: Yes Vital Signs On Initial Exam: Initial Vitals Temp Pulse Resp BP Pulse Ox 98.8 F 93 19 134/90 98 05/28/19 16:04 05/28/19 16:04 05/28/19 16:04 05/28/19 16:04 05/28/19 16:04 Vital Signs Reviewed: Yes Procedures - Sedation Patient Received Moderate/Deep Sedation with Procedure: No Diagnostics - Vital Signs Vital Signs Temp Pulse Resp BP Pulse Ox 05/28/19 16:04 98.8 F 93 19 134/90 98 - Laboratory Lab Statement: Any lab studies that have been ordered have been reviewed, and results considered in the medical decision making process. Re-Evaluation - Re-Evaluation 1st re-eval Re-Evaluation Time: 17:50 Change: Unchanged Comment: Dr. Nina in room. EENT Course/Dx - Course Course Of Treatment: Patient is here with bleeding after tonsillectomy site. Patient was sent in by ENT who was color myself. ENT came to the bedside and cauterized the bleeding which stopped. Patient was discharged with ENT follow- up. - Diagnoses Provider Diagnoses: Post-tonsillectomy hemorrhage - Provider Notifications Discussed Care Of Patient With: Topher Nina Time Discussed With Above Provider: 16:58 Instructed by Provider To: MD Will See In ED Discharge ED - Sign-Out/Discharge Documenting (check all that apply): Patient Departure - Discharge Plan Condition: Stable Disposition: HOME Referrals: Annie Burrell MD [Primary Care Provider] - Topher Nina MD [Medical Doctor] - 3 Days Additional Instructions: Follow up with Dr. Nina within the next 1-3 days. Return to the emergency department with any new or worsening symptoms, including continuous bleeding, fever, or other concerning symptoms. - Billing Disposition and Condition Condition: STABLE Disposition: Home - Attestation Statements Document Initiated by Scribe: Yes Documenting Scribe: Nishi Ramirez Provider For Whom Roblesibe is Documenting (Include Credential): Trav Vieira MD. Scribe Attestation: Nishi Bae scribed for Trav Vieira MD. on 05/28/19 at 2009. Scribe Documentation Reviewed: Yes Provider Attestation: The documentation as recorded by the Nishi ewing accurately reflects the service I personally performed and the decisions made by Trav sandoval MD. Status of Scribe Document: Viewed
[2019-05-28] MEDS ORDERED: NS 0.9% 1000 ML** 1,000 ML IV ONE (17:03)
[2019-05-28] MEDS ORDERED: Lidocaine 4% TOPICAL* 50 ML TOP.SOLN TOPICAL ONE (17:58)
[2019-05-28] MEDS ORDERED: Silver Nitrate/Potassium Nitr* 1 PAK (1 PAK PER PATIENT) TOPICAL ONE (17:58)
[2019-05-28 18:18] VITALS: BP 128/63
--- NOTE | 2019-05-29 02:32 | OP ---
DATE OF OPERATION: 05/28/19 - EMERGENCY DEPT DATE OF : [birth year] SURGEON: Topher Nina M.D. PRE-OP DIAGNOSIS: Oropharyngeal hemorrhage, left side. POST-OP DIAGNOSIS: Oropharyngeal hemorrhage, left side. OPERATIVE PROCEDURE: Cautery in the ED, left tonsil fossa. BRIEF HISTORY: This 23-year-old female elected tonsillectomy 8 days ago. She had had a right tonsil bleed and was seen in the office, cauterized with silver nitrate today. This evening she woke up and started having bleeding from the left tonsil fossa and came to the emergency room. DESCRIPTION OF PROCEDURE: At the bedside, the patient was given topical anesthesia. Confirmation of the site and side, previous noted clot was removed. Silver nitrate cauterization was carried out. The patient tolerated this well. She was observed for 20 minutes, then discharged home to be seen in the office as needed. [id number]/CPS #: [id number] MTDD
== END 2019-05-28 18:16 | disposition home or self-care (01) ==
LOC: ED 16:00
DX: J95.830 Postprocedural hemorrhage of a respiratory system organ or structure following a respiratory system procedure (principal)
CPT/HCPCS: 96374; 99282; A9270-GY

== ENCOUNTER 2019-07-06 09:51 | Emergency (ER) | payer OTHER ==
--- OUTSIDE RECORDS SUMMARY | 2019-07-06 10:00 | XMS REPORT | Continuity of Care Document ---
:1995 External Reference #:[id number] Author Name Larissa Gil CNM Address [address] [place] [address] Problems Active Problems Provider Date H/O: urinary stone Dakotah Lynn MD Onset: 05/25/2019 Social History Type Date Description Comments Sex Unknown Cigarette Use Does Not Smoke Cigarettes ETOH Use Currently consumes alcohol occasionally Recreational Drug Use Denies Drug Use Tobacco Use Start: Unknown Patient has never smoked Smoking Status Reviewed: 06/08/19 Patient has never smoked Exercise Type/Frequency Does [...] Larissa Gil, 02/03/2019 day CNM 0.25-35mg-mcg Tablets Metoprolol Succinate [...] PT SCRN Tbco Id as Non User Larissa Gil CNM 06/08/2019 Injection PT SCRN Tbco Id as Non User Dakotah Lynn MD 04/28/2019 Injection PT SCRN Tbco Id as Non User Pepper Lee CNM 03/24/2019 Injection Immunizations Description No Information Available Vital Signs Date Vital Result Comment 06/08/2019 3:24pm BP Systolic 110 mmHg BP Diastolic 76 mmHg Height 66 inches 5'6" Weight 224.00 lb BMI (Body Mass Index) 36.2 kg/m2 Last Menstrual Period 9328153 0 Parity 0 04/28/2019 1:23pm BP Systolic 122 mmHg BP Diastolic 78 mmHg Height 66 inches 5'6" Weight 232.00 lb BMI (Body Mass Index) 37.4 kg/m2 Last Menstrual Period 5344598 0 Parity 0 Results Test Acquired Date Facility Test Result H/L Range Note Laboratory test 06/08/2019 [facility] <pending> [place] [address] ast: Vaginal [phone] Dna Laboratory test 03/24/2019 [facility] SEE RESULT 1 [place] [address] ast: Vaginal BELOW [phone] Dna Laboratory test 01/25/2019 [facility] SEE RESULT 2 [place] [address] ast: Vaginal BELOW [phone] Dna Laboratory test 01/25/2019 [facility] SEE RESULT 3 [place] [address] BELOW [phone] 1 SEE RESULT BELOW Name: FERNANDO MASSEY : [address]: Pepper Lee [facility] Acct: [id number] Unit: [id number] AGE: 23 Location: [facility] Re03/24/19 SEX: F Status: REG REF SPEC: [id number] BERTO: 03/24/19-[address] [facility] [address]: Pepper Lee [facility] REQ: [id number] RECD: 03/25/19 STATUS:COMP _ SOURCE: VAGINAL SPDESC: ORDERED: Brennan,Yeast DNA COMMENTS: [id number] Would you like to order Trichomonas Vaginalis [...] . END OF REPORT DEPARTMENT OF PATHOLOGY, [address] [place] [address] Ilia Mijares M.D. Director [facility] # [id number] 2 SEE RESULT BELOW Name: BRYSONFERNANDO KING : [address]: Larissa Gil CNM Acct: [id number] Unit: [id number] AGE: 23 Location: [facility] Re01/25/19 SEX: F Status: REG REF SPEC: [id number] BERTO: 01/25/19-[address] [facility] [address]: Larissa Gil CNM REQ: [id number] RECD: 01/26/19124 STATUS: COMP _ SOURCE: VAGINAL SPDESC: ORDERED: Brennan,Yeast DNA, Trich DNA COMMENTS: [id number] Would you like to order Trichomonas Vaginalis [...] CONTINUED ON NEXT PAGE DEPARTMENT OF PATHOLOGY, [address] [place] [address] Ilia Mijares M.D. Director [facility] # [id number] Patient: FERNANDO MASSEY [id number] (Continued) Specimen: [id number] Collected: 01/25/19 Received: 01/26/19 (Continued) Procedure Result Reported Site Trichomonas: Vaginal DNA Probe Final (continued) 01/27/19 111 The presence or absence of T. vaginalis cannot be used as a test for therapeutic success or failure. * - Main Lab . END OF REPORT DEPARTMENT OF PATHOLOGY, [address] [place] [address] Ilia Mijares M.D. Director [facility] # [id number] 3 SEE RESULT BELOW Name: FERNANDO MASSEY : [address]: Larissa Gil CNM Acct: [id number] Unit: [id number] AGE: 23 Location: [facility] Re01/25/19 SEX: F Status: REG REF SPEC: [id number] BERTO: 01/25/19-[address] [facility] [address]: Larissa Gil CNM REQ: [id number] RECD: 01/26/19 STATUS: SOUT _ ORDERED: TP IMAGE ANALYS COMMENTS: [id number] FINAL DIAGNOSIS Negative for Intraepithelial lesion or [...] Signed by and Reported on: CATY Morton(ASCP) 0109 This Pap test was evaluated with the assistance of the [employer] Test Imaging System. Due to cytologic findings at the baggage smasher microscope, comprehensive manual rescreening by a Lard Refiner may be required. The Pap Smear is [...] years. END OF REPORT DEPARTMENT OF PATHOLOGY, [address] [place] [address] Ilia Mijares M.D. Director [facility] # [id number] Procedures Description No Information Available Medical Devices Description No Information Available Encounters Type Date Location Provider Dx Diagnosis Office Visit 04/28/2019 [facility] Dakotah Lynn MD R10.31 Right lower quadrant 1:30p pain Z87.442 Personal history of urinary calculi Office Visit 03/24/2019 3:45p [facility] Pepper Lee, N76.0 Acute vaginitis SHANTI Office Visit 01/25/2019 3:00p [facility] Larissa Gil CNM Z01.419 Encntr for [employer] exam (general) (routine) w/o abn findings Assessments Date Code Description Provider 06/08/2019 N76.0 Acute vaginitis Larissa Gil CNM 04/28/2019 R10.31 Right lower quadrant pain Dakotah [...] Dr Reason for Referral Status Appt Date Kayla Schneider MD Pt has been having persistent RLQ pain, Created and the CT showed a 7mm stone in the lower ureter near the bladder. [address] [place] [address] [phone]
--- OUTSIDE RECORDS SUMMARY | 2019-07-06 10:00 | XMS REPORT | Continuity of Care Document ---
:1995 External Reference #:[id number] Author Name Heaven Mcleod PA-C Address [address] [place] [address] Care Team Providers Name Role Phone Annie Burrell MD Care Team Information Civil Preparedness Training Officer [phone] Problems Active Problems Provider Date Chronic tonsillitis [...] Medications SIG Qnty Indications Ordering Provider Date [place] Take One Tablet Unknown 0.25-35mg-mcg By Mouth Every Tablets Day Metoprolol Succinate Take One Tablet Unknown ER By Mouth Every 25mg Tablets ER 24HR Day Propranolol HCL Take One Tablet Unknown 10mg By Mouth AT Night Tablets as Needed History Medications Prednisone 4 tabs by mouth 14tabs Alec Sky 05/23/2019 - 10mg every day x2 d, then MD Nicole 06/13/2019 Tablets 2 tabs by mouth every day x2d, then 1 tab by mouth every day x2d, then off Hydrocodone 15 milliliters by 420ml Alec Sky 05/18/2019 - Bitartrate/Acetamino mouth every 6 hours MD Nicole 06/13/2019 phen as needed pain 7.5-325mg/15ML Solution Immunizations Description No Information Available Vital Signs Date Vital Result Comment 06/13/2019 9:12am Weight 226.00 lb Weight 102.514 kg Height 67.5 inches 5'7.50" Height in cm's 171.4 cm BMI (Body Mass Index) 34.9 kg/m2 05/27/2019 12:33pm Weight 225.00 lb Weight 102.060 kg Height 67.5 inches 5'7.50" Height in cm's 171.4 cm BMI (Body Mass Index) 34.7 kg/m2 Results Test Acquired Date Facility Test Result H/L Range Note Surgical 05/20/2019 [facility] Surgical SEE RESULT 1 Pathology c/o [facility] [place] [address] [phone] PDFReport SEE IMAGE 1 SEE RESULT BELOW Name: FERNANDO MASSEY : [address]: Alec Rivera MD Acct: [id number] Unit: [id number] AGE: 23 Location: OR Re05/20/19 SEX: F Status: REG [facility] [place] SPEC: [id number] BERTO: 05/20/19- SUBM DR: Alec Rivera MD REQ: [id number] RECD: 05/20/19 STATUS: SOUT _ ORDERED: LEVEL [...] The specimen is inked, serially sectioned and security systems sales representative sections are submitted in one cassette. 2. The specimen is received in formalin labeled, Left Tonsil, and consists of a 3.0 x 2.2 x 1.8 cm montague-pink ovoid cerebriform and focally cauterized tonsil with a small amount of adherent red-brown blood clot. The cut surface is glistening montague-pink with normal crypts. The specimen is inked, serially sectioned and security systems sales representative sections are submitted in one cassette. CONTINUED ON NEXT PAGE DEPARTMENT OF PATHOLOGY, [address] [place], [place] [id number] Ilia Mijares M.D. Director [facility] # [id number] Signed by and Reported on: Deib Alexandra MD 05/23/19 1517 END OF REPORT DEPARTMENT OF PATHOLOGY, [address] [place] [id number] Ilia Mijares M.D. Director [facility] # [id number] Procedures Date Code Description Status 05/27/2019 85707 Control Oropharyngeal Hemorr.Simp Completed 05/20/2019 93717 Tonsillectomy Age 12 And Over Completed Medical Devices Description No Information Available Encounters Type Date Location Provider Dx Diagnosis Office Visit 06/13/2019 Radha Mcleod, [email or web address] Chronic tonsillitis 9:15a 05-11-2019 NEMO Office Visit 04/25/2019 [place],After Heaven Mcleod J35.01 Chronic tonsillitis 9:15a 05/11/07 NEMO J35.1 Hypertrophy of tonsils Office Visit 02/15/2019 [place],After Alec [email or web address] Chronic 2:45p 05/11/07 MD Nicole tonsillitis J35.1 Hypertrophy of tonsils Assessments Date Code Description Provider 06/13/2019 J35.01 Chronic tonsillitis Heaven Mcleod PA-C 05/27/2019 J95.830 Postprocedural hemorrhage of a respiratory RuTopher dye MD system organ or structure following a respiratory system procedure 05/20/2019 J35.01 Chronic tonsillitis Alec Rivera MD 04/25/2019 J35.01 Chronic tonsillitis Heaven Mcleod PA-C 04/25/2019 J35.1 Hypertrophy of tonsils Heaven Mcleod PA-C 02/15/2019 J35.01 Chronic tonsillitis Alec Rivera MD 02/15/2019 J35.1 Hypertrophy of tonsils Alec Rivera MD Plan of Treatment No Information Available Functional Status Description No Information Available Mental Status Description No Information Available Referrals Description No Information Available
[2019-07-06 10:51] VITALS: BP 103/71
[2019-07-06 12:00] LABS: Influenza A Molecular Negative (Negative); Influenza B Molecular Negative (Negative)
--- NOTE | 2019-07-06 12:29 | UC ---
Throat Pain/Nasal Tung HPI - HPI Summary HPI Summary: PATIENT HAD A FUNNY SENSATION IN THE BACK OF HER THROAT THIS MORNING. NO PAIN. NO FEVER. NO URI SYMPTOMS. TONSILLECTOMY DONE ON 05/20/2019. PATIENT STATES SHE LOOKED IN THE BACK OF HER THROAT AND THOUGHT SHE SAW SOME RETAINED TONSILLAR TISSUE so SHE HAD A COWORKER LOOK IN HER THROAT. COWORKER SAID SHE SAW WHITE PATCHES ALL OVER HER THROAT AND SENT HER FOR STREP TESTING. PATIENT DOES NOT THINK SHE HAS STREP BUT THEY WILL NOT ALLOW HER BACK TO WORK UNTIL SHE IS TESTED. - History of Current Complaint Chief Complaint: UCGeneralIllness Stated Complaint: SORE THROAT Time Seen by Provider: 07/06/19 11:54 Hx Obtained From: Patient Hx Last Menstrual Period: 06/27/19 Onset/Duration: Lasting Hours, Resolved Severity: Mild Pain Intensity: 1 Pain Scale Used: 0-10 Numeric Cough: None Associated Signs & Symptoms: Positive: Negative - Allergies/Home Medications Allergies/Adverse Reactions: Allergies Allergy/AdvReac Type Severity Reaction Status Date / Time latex Allergy Severe Rash Verified 07/06/19 10:45 sulfamethoxazole Allergy Mild GI Upset Verified 07/06/19 10:45 [From Bactrim] trimethoprim [From Bactrim] Allergy Mild GI Upset Verified 07/06/19 10:45 Home Medications: Home Medications Norgestimate-Ethinyl Estradiol [Angelina-Linyah 28 Tablet] 1 tab PO QAM 03/01/19 [ History Confirmed 07/06/19] Metoprolol Succinate 25 mg PO BEDTIME 05/01/19 [History Confirmed 07/06/19] Cider Vinegar [Apple Cider Vinegar] 900 mg PO DAILY 07/06/19 [History Confirmed 07/06/19] L.acidoph,Paracasei, B.lactis [Probiotic] 1 each PO DAILY 07/06/19 [History Confirmed 07/06/19] Multivitamin [Multivitamins] 1 cap PO DAILY 07/06/19 [History Confirmed 07/06/19 ] PMH/Surg Hx/FS Hx/Imm Hx Previously Healthy: Yes - Surgical History Surgical History: Yes Surgery Procedure, Year, and Place: [place] teeth. tonsillectomy 2019 - Family History Known Family History: Positive: Other Family History: Mother has varicose veins and pelvic congestion syndrome - Social History Alcohol Use: Rare Substance Use Type: None Smoking Status (MU): Never Smoked Tobacco Household Exposure Type: Cigarettes - Immunization History Vaccination Up to Date: Yes Review of Systems All Other Systems Reviewed And Are Negative: Yes Constitutional: Positive: Negative ENT: Positive: Negative Respiratory: Positive: Negative Cardiovascular: Positive: Negative Gastrointestinal: Positive: Negative Physical Exam Triage Information Reviewed: Yes Appearance: Well-Appearing, No Pain Distress, Well-Nourished Vital Signs: Initial Vital Signs Temp 98 F 07/06/19 10:46 Pulse 78 07/06/19 10:46 Resp 16 07/06/19 10:46 BP 103/71 07/06/19 10:46 Pulse Ox 100 07/06/19 10:46 Laboratory Tests 07/06/19 07/06/19 11:46 11:48 Influenza A (Rapid) Negative Influenza B (Rapid) Negative Group A Strep Rapid Negative Vital Signs Reviewed: Yes Eyes: Positive: Conjunctiva Clear ENT: Positive: Hearing grossly normal, Pharynx normal, TMs normal. Negative: Tonsillar exudate Neck: Positive: Supple, Nontender, No Lymphadenopathy Respiratory Exam: Normal Cardiovascular Exam: Normal Abdomen Description: Positive: Soft Musculoskeletal: Positive: No Edema Neurological: Positive: Alert Psychological: Positive: Age Appropriate Behavior Skin: Negative: Rashes Throat Pain/Nasal Course/Dx - Course Course Of Treatment: STREP AND FLU NEGATIVE. NO ACUTE INTERVENTION INDICATED AT THIS TIME. STAY WELL-HYDRATED AND RESTED. FOLLOW-UP IF NEEDED. - Differential Dx/Diagnosis Provider Diagnosis: Throat discomfort Discharge ED - Sign-Out/Discharge Documenting (check all that apply): Patient Departure All imaging exams completed and their final reports reviewed: No Studies - Discharge Plan Condition: Stable Disposition: HOME Patient Education Materials: Pharyngitis (ED) Referrals: Annie Burrell MD [Primary Care Provider] - If Needed Additional Instructions: FLU NEGATIVE. STREP NEGATIVE. STAY WELL HYDRATED AND RESTED. FOLLOW-UP IF NEEDED. - Billing Disposition and Condition Condition: STABLE Disposition: Home
== END 2019-07-06 12:28 | disposition home or self-care (01) ==
LOC: UCEAST 09:51
DX: R07.0 Pain in throat (principal); Z91.040 Latex allergy status; Z88.2 Allergy status to sulfonamides
CPT/HCPCS: 87651; 99211; G0463